=== PATIENT | female | born 1960 | race Caucasian/White ===

== ENCOUNTER 2024-06-10 10:53 | Inpatient (IN) | payer MEDICARE, SELFPAY ==
[2024-06-10] VITALS (19 sets, daily range): BP systolic 87–132; BP diastolic 58–84; PULSE 92–113; RESP 18–24; TEMP 36.2–37.1; O2SAT 85–96
--- NOTE | ~2024-06-10 | XR_ITS ---
EXAMINATION: XR chest 2V DATE: 06/10/2024 11:45 INDICATION: Shortness of breath TECHNIQUE: PA and lateral views of the chest were obtained. COMPARISON: None FINDINGS: Reticular and mild airspace opacities in the right mid to lower and left lower lung zones. Blunting a t the left costophrenic angle but without blunting of the cardiophrenic angle or posterior sulcus con sistent with pleural parenchymal scarring. No pleural effusion or pneumothorax. Heart size is normal. Mild thoracolumbar levocurvature with mild spondylosis. IMPRESSION: 1. Reticular and mild airspace opacities in the right mid to lower and left lower lung zones with olga earance favoring atelectasis or chronic scarring. In the acute setting could not exclude pneumonia. Reviewed, dictated and finalized at location B. ET SURVEY REPRESENTATIVE IMPRESSION: 1. Reticular and mild airspace opacities in the right mid to lower and left low er lung zones with appearance favoring atelectasis or chronic scarring. In the acute setting could not exclude pneumonia.
--- NOTE | ~2024-06-10 | CT_ITS ---
EXAMINATION: CTA chest PE protocol DATE: 06/10/2024 13:01 INDICATION: Shortness of breath. TECHNIQUE: Computed tomography angiography (CTA) of the chest was performed with 100 mL Omnipaque-350 intravenous contrast timed to evaluate the pulmonary arteries. Coronal maximum intensity projection 3D-reconstructions were created by the technologist. Automated exposure control and iterative reconst ruction technique were employed. The dose-length product was 295.93 mGy-cm. COMPARISON: Chest CT 06/10/2024 FINDINGS: There is moderate emphysema. There is mild atelectasis bilaterally. There is scarring in ri ght middle lobe and at right major fissure. No pleural effusion. The heart size is normal. There are coronary artery calcifications. No pericardial effusion. There is no pulmonary embolus. There is christa re cervical spondylosis and moderate thoracic spondylosis. There is mild chronic height loss of multi ple vertebral bodies. IMPRESSION: 1. No pulmonary embolus. 2. Moderate emphysema. 3. Scarring in right middle lobe and at right major fissure. Reviewed, dictated and finalized at location A. EOTYPER APPRENTICE
--- NOTE | 2024-06-10 11:17 | ECG_ITS ---
Test Date: 2024-06-10 11:31:29 Measurements Intervals [place] Rate: 110 P: 54 DC: 117 QRS: -24 QRSD: 93 T: 48 QT: 320 QTc: 435 Interpretive Statements SINUS TACHYCARDIA WITH SHORT DC INTERVAL POSSIBLE LEFT ATRIAL ENLARGEMENT [-0.1mV P-WAVE IN V1/V2] BORDERLINE LEFT AXIS DEVIATION [QRS AXIS < -20] No previous ECG available for comparison Electronically Signed On 06-10-2024 14:51:40 [employer] OPERATOR by Rodo Boo M.D.
[2024-06-10 11:32] LABS: Base Excess ABG 3.5 mEq/l (+/-2.0); Carboxyhemoglobin 4.1 % THb (0-2.0); Fractional Inspired Oxygen 32 %; HCO3 ABG 31.1 mEq/l (22.0-26.0); Methemoglobin ABG 0.2 %THb (0-1.5); Oxygen Content ABG 21.4 %vol (16.0-22.0); Oxygen Saturation ABG 93.1 % (95.0-100.0); Oxyhemoglobin 88.7 % THb (90.0-100.0); PCO2 ABG 57.8 mmHg (35.0-45.0); PO2 ABG 70.5 mmHg (80.0-100.0); Total Hemoglobin 17.2 g/dL (12.0-18.0); pH ABG 7.349 (7.350-7.450)
[2024-06-10 11:34] LABS: Device NASAL CANNULA; Site Drawn LEFT BRACHIAL
[2024-06-10 12:02] LABS: Basophils Percent Auto 0.5 % (0.2-1.2); Eosinophils Percent Auto 0.5 % (0-4.4); Hematocrit 57.1 % (37.0-47.0); Immature Granulocyte Absolute 0.01 K/mm3 (0.00-0.031); Immature Granulocyte Percent A 0.1 % (0-0.5); Lymphocytes Absolute Auto 2.06 K/mm3 (0.9-3.2); Lymphocytes Percent Auto 25.8 % (18.3-44.2); Mean Corpuscular HGB Conc 29.8 g/dl (32-36); Mean Corpuscular Hemoglobin 24.4 pg (26-34); Mean Corpuscular Volume 81.8 fl (80-100); Mean Platelet Volume 9.8 fl (7.4-10.4); Monocytes Absolute Auto 0.5 K/mm3 (0.1-0.6); Monocytes Percent Auto 6.1 % (2.6-8.5); Neutrophils Absolute Auto 5.3 K/mm3 (1.3-6.7); Platelet Count Result 343 k/mm3 (150-375); Red Blood Count 6.98 M/mm3 (4.2-5.4); Red Cell Distribution Width 20.2 % (11.5-14.5)
--- NOTE | 2024-06-10 12:13 | ED.GENADULT ---
HPI - General Adult General Chief complaint: Shortness of Breath/Dyspnea Stated complaint: SOB Time Seen by Provider: 06/10/24 11:57 History of Present Illness HPI narrative: Patient is a 63-year-old female who presents emergency department with chief complaint of hypoxia. Patient reports that she went in for a normal checkup they noticed that her lips were blue and found her oxygen saturation in the 80s the patient was placed on 2 L nasal cannula reports that she feels a little bit better now that she is on the oxygen. Patient denies chest pain denies shortness of breath reports that she does smoke cigarettes Related Data Allergies Allergy/AdvReac Type Severity Reaction Status Date / Time dicloxacillin Allergy Intermediate Unknown Verified 06/10/24 11:59 Exam Narrative: GENERAL: Well-appearing, well-nourished, and in no acute distress. HEAD: Normocephalic, atraumatic. EYES: PERRLA and EOMI. ENT: Nares clear, no rhinorrhea or epistaxis. Mucous membranes moist. NECK: Supple. CHEST: Clear to auscultation. No respiratory distress. HEART: Regular rate and rhythm. No murmur heard. Normal peripheral pulses. ABDOMEN: Soft, nontender, nondistended, normal active bowel sounds. EXTREMITIES: Normal range of motion. No edema. Above-knee amputation left lower extremity SKIN: Warm, dry, no rash. NEURO: No focal deficits. Alert and oriented x3. PSYCH: Normal mood and affect. Course Vital Signs Vital signs: Vital Signs Temperature 36.2 C L 06/10/24 10:51 Pulse Rate 106 H 06/10/24 10:51 Respiratory Rate 23 H 06/10/24 10:51 Blood Pressure 121/78 06/10/24 10:51 Pulse Oximetry 85 L 06/10/24 10:51 Oxygen Delivery Room Air 06/10/24 10:51 Temperature 36.2 C L 06/10/24 10:51 Pulse Rate 109 H 06/10/24 12:16 Respiratory Rate 23 H 06/10/24 12:16 Blood Pressure 108/68 06/10/24 12:16 Pulse Oximetry 92 06/10/24 12:16 Oxygen Delivery Nasal Cannula 06/10/24 11:25 Oxygen Flow Rate 2 06/10/24 11:25 Medical Decision Making [facility] Narrative Medical decision making narrative: Differential diagnosis includes pneumonia, pneumothorax, COVID, COVID flu and RSV were negative Chest x-ray showed no evidence pneumothorax CTA chest showed no evidence of pulmonary embolism Patient is still hypoxic and requiring 2 L nasal cannula oxygen the case was discussed with hospitalist for admission. Vital Signs Vital Signs: Vital Signs Temperature 36.2 C L 06/10/24 10:51 Pulse Rate 106 H 06/10/24 10:51 Respiratory Rate 23 H 06/10/24 10:51 Blood Pressure 121/78 06/10/24 10:51 Pulse Oximetry 85 L 06/10/24 10:51 Oxygen Delivery Room Air 06/10/24 10:51 Temperature 36.2 C L 06/10/24 10:51 Pulse Rate 109 H 06/10/24 12:16 Respiratory Rate 23 H 06/10/24 12:16 Blood Pressure 108/68 06/10/24 12:16 Pulse Oximetry 92 06/10/24 12:16 Oxygen Delivery Nasal Cannula 06/10/24 11:25 Oxygen Flow Rate 2 06/10/24 11:25 Lab Data 06/10/24 11:54 06/10/24 11:54 Labs: Lab Results 06/10/24 06/10/24 06/10/24 Range/Units 11:29 11:54 12:41 WBC 8.0 (4.5-10.0) K/mm3 RBC 6.98 H (4.2-5.4) M/mm3 Hgb 17.0 H (12.0-15.0) g/dL Hct 57.1 H (37.0-47.0) % MCV 81.8 (80-100) fl MCH 24.4 L (26-34) pg MCHC 29.8 L (32-36) g/dl RDW 20.2 H (11.5-14.5) % Plt Count 343 (150-375) k/mm3 MPV 9.8 (7.4-10.4) fl Immature Gran % (Auto) 0.1 (0-0.5) % Neut % (Auto) 67.0 (45.5-73.1) % Lymph % (Auto) 25.8 (18.3-44.2) % [place] % (Auto) 6.1 (2.6-8.5) % Eos % (Auto) 0.5 (0-4.4) % Baso % (Auto) 0.5 (0.2-1.2) % Lymph # (Auto) 2.06 (0.9-3.2) K/mm3 [place] # (Auto) 0.5 (0.1-0.6) K/mm3 Eos # (Auto) 0.0 (0-0.3) K/mm3 Baso # (Auto) 0.0 (0.0-0.1) K/mm3 Abs Immat Gran (auto) 0.01 (0.00-0.031) K/mm3 Absolute Neuts (auto) 5.3 (1.3-6.7) K/mm3 Absolute Nucleated RBC 0.000 (0.0-0.012) K/mm3 Nucleated RBC % 0.0 (0.0-0.2) % PT 13.3 (11.1-14.7) Seconds INR 1.0 APTT 29.4 (22.3-36.8) Seconds Methemoglobin 0.2 (0-1.5) %THb Sodium 139 (137-145) mmol/L Potassium 4.5 (3.4-5.0) mmol/L Chloride 102 (98-107) mmol/L Carbon Dioxide 32 H (22-30) mmol/L Anion Gap 5 (4-12) mmol/L BUN 19 H (7-17) mg/dL Creatinine 0.51 L (0.7-1.0) mg/dL Estim Creat Clear Calc 92 ml/min Estimated GFR > 60 (59 - ) Glucose 121 H (65-110) mg/dL Lactic Acid 0.9 (0.7-2.0) mmol/L Calcium 9.1 (8.4-10.2) mg/dL Magnesium 2.0 (1.6-2.3) mg/dL Total Bilirubin 0.5 (0.2-1.3) mg/dL AST 28 (14-36) U/L ALT 19 (6-35) U/L Alkaline Phosphatase 84 (38-126) U/L Troponin I < 0.012 (0.000-0.034) ng/mL NT-Pro-B Natriuret Pep 37 (19.9-100) pg/mL Total Protein 7.0 (6.3-8.2) g/dL Albumin 4.0 (3.5-5.1) g/dL Procalcitonin 0.1 ng/mL Influenza A (RT-PCR) Negative (Negative) Influenza B (RT-PCR) Negative (Negative) RSV (RT-PCR) Negative (Negative) SARS-CoV-2 RNA (RT-PCR) Negative (Negative) ABG Data ABG results: 06/10/24 11:29 Puncture Site Left brachial ABG pH 7.349 L ABG pCO2 57.8 H ABG pO2 70.5 L ABG PO2/FiO2 Ratio 2.20 ABG HCO3 31.1 H ABG O2 Saturation 93.1 L ABG O2 Content 21.4 ABG Base Excess 3.5 A-a Gradient 90.0 Oxyhemoglobin 88.7 L Carboxyhemoglobin 4.1 H Reduced Hemoglobin 7.0 H Total Hemoglobin 17.2 O2 Delivery Device Nasal cannula O2 Liters/Min 3.0 FiO2 32 Discharge Plan Discharge Clinical Impression: Acute hypoxemic respiratory failure, COPD exacerbation Patient Disposition: Still a Patient Condition: Stable Patient Language: Djib[place]ian Follow-up/Referrals: UNKNOWN,DOCTOR [Primary Care Provider] - Time of Disposition: 13:37
[2024-06-10 12:23] LABS: Alanine Aminotransferase 19 U/L (6-35); Alkaline Phosphatase 84 U/L (38-126); Anion Gap 5 mmol/L (4-12); Aspartate Amino Transferase 28 U/L (14-36); Bilirubin,Total 0.5 mg/dL (0.2-1.3); Blood Urea Nitrogen 19 mg/dL (7-17); Calcium 9.1 mg/dL (8.4-10.2); Carbon Dioxide 32 mmol/L (22-30); Chloride 102 mmol/L (98-107); Estimated CRCL calculation 92 ml/min; Estimated Glomerular Filt Rate > 60; Glucose 121 mg/dL (65-110); Potassium 4.5 mmol/L (3.4-5.0); Sodium 139 mmol/L (137-145)
[2024-06-10 13:01] LABS: Lactic Acid Reflex 0.9 mmol/L (0.7-2.0)
[2024-06-10 13:03] LABS: Prothrombin Time 13.3 Seconds (11.1-14.7)
[2024-06-10 13:04] LABS: Partial Thromboplastin Time 29.4 Seconds (22.3-36.8)
[2024-06-10 13:14] LABS: NT Pro B Type Natriuretic Pept 37 pg/mL (19.9-100); Troponin I < 0.012 ng/mL (0.000-0.034)
[2024-06-10 13:29] LABS: Influenza A QL RT-PCR Negative (Negative); Influenza B QL RT-PCR Negative (Negative); RSV RNA, RT-PCR Negative (Negative); SARS-CoV-2 RNA PCR Negative (Negative)
[2024-06-10 13:35] LABS: Procalcitonin 0.1 ng/mL
[2024-06-10] MEDS: IPRATROPIUM 0.5 MG/ALBUTEROL SULFATE 2.5 MG AMPUL.NEB 3 ML INHALATION ×2 (13:44→20:19)
[2024-06-10] MEDS: methylPREDNISolone SOD SUCC 125 MG VIAL IV PUSH (13:48)
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
--- NOTE | 2024-06-10 17:17 | PC.NURSE ---
This patient, Soha Hoffman, was admitted to 3 [facility] [place] Surg Room 300-01. Patient/family oriented to hospital policies and general routines including ID bracelet, bed and alarms, visiting hours, pain management, procedures, bathroom and other care routines, personal items, smoking policy, room service/diet, and visiting hours. Information on how to activate the Rapid Response Team has been discussed. Patient/Family are encouraged to report perceived risks to care and to ask questions if they do not understand what they are told or what they should do.
[2024-06-10 20:18] LABS: Add Urine Microscopic? YES; Appearance Urine Clear (Clear); Bacteria Urine None Seen /hpf; Bilirubin Urine Negative (Negative); Blood Urine Negative (Negative); Color Urine Yellow (Yellow); Glucose Urine UA 3+ mg/dL (Negative); Ketones Urine Trace mg/dL (Negative); Leukocyte Esterase Ur Negative LEU/UL (Negative); Nitrate Urine Negative (Negative); Non Pathogenic Casts 0-2; Protein Urine 3+ mg/dL (Negative); RBC Urine 0-2 /hpf (0-2); Specific Grav Ur > 1.045 (1.001-1.035); Squamous Epithelial Cell Urine None Seen /hpf (Few); WBC Urine 0-5 /hpf (0-3); pH Urine 5.5 (5.0-9.0)
[2024-06-10] MEDS: methylPREDNISolone SOD SUCC 125 MG VIAL 60 MG IV PUSH (21:57)
[2024-06-11] VITALS (12 sets, daily range): BP systolic 129–139; BP diastolic 57–79; PULSE 86–113; RESP 20–22; TEMP 36.5–36.7; O2SAT 90–96
[2024-06-11] MEDS: HYDROcodone/acetaminophen (*CRX) 5-325 MG TABLET 1 TAB PO ×3 (00:08→23:01)
[2024-06-11] MEDS: IPRATROPIUM 0.5 MG/ALBUTEROL SULFATE 2.5 MG AMPUL.NEB 3 ML INHALATION ×4 (04:46→20:46)
[2024-06-11] MEDS: methylPREDNISolone SOD SUCC 125 MG VIAL 60 MG IV PUSH ×2 (05:36→16:46)
[2024-06-11 07:41] LABS: Eosinophils Percent Auto 0.1 % (0-4.4); Hematocrit 51.1 % (37.0-47.0); Hemoglobin 15.3 g/dL (12.0-15.0); Immature Granulocyte Absolute 0.03 K/mm3 (0.00-0.031); Immature Granulocyte Percent A 0.4 % (0-0.5); Lymphocytes Absolute Auto 0.84 K/mm3 (0.9-3.2); Lymphocytes Percent Auto 10.1 % (18.3-44.2); Mean Corpuscular HGB Conc 29.9 g/dl (32-36); Mean Corpuscular Hemoglobin 24.4 pg (26-34); Mean Corpuscular Volume 81.5 fl (80-100); Mean Platelet Volume 10.4 fl (7.4-10.4); Monocytes Percent Auto 0.5 % (2.6-8.5); Neutrophils Absolute Auto 7.4 K/mm3 (1.3-6.7); Neutrophils Percent Auto 88.9 % (45.5-73.1); Platelet Count Result 284 k/mm3 (150-375); Red Blood Count 6.27 M/mm3 (4.2-5.4); Red Cell Distribution Width 19.5 % (11.5-14.5); White Blood Count 8.3 K/mm3 (4.5-10.0)
[2024-06-11 07:58] LABS: Anion Gap 4 mmol/L (4-12); Blood Urea Nitrogen 16 mg/dL (7-17); Carbon Dioxide 31 mmol/L (22-30); Chloride 101 mmol/L (98-107); Estimated CRCL calculation 116 ml/min; Estimated Glomerular Filt Rate > 60; Glucose 150 mg/dL (65-110); Potassium 4.7 mmol/L (3.4-5.0); Sodium 136 mmol/L (137-145)
[2024-06-11] MEDS: amLODIPine BESYLATE 5 MG TABLET PO (08:19)
[2024-06-11] MEDS: ROSUVASTATIN 10 MG TABLET PO (08:19)
[2024-06-11] MEDS: lisinopriL 20 MG TABLET PO (08:19)
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
[2024-06-12] VITALS (22 sets, daily range): BP systolic 101–140; BP diastolic 45–83; PULSE 83–150; RESP 18–24; TEMP 36.4–36.5; O2SAT 83–96
[2024-06-12] MEDS: IPRATROPIUM 0.5 MG/ALBUTEROL SULFATE 2.5 MG AMPUL.NEB 3 ML INHALATION ×4 (01:31→19:31)
[2024-06-12] MEDS: ROSUVASTATIN 10 MG TABLET PO (08:00)
[2024-06-12] MEDS: lisinopriL 20 MG TABLET PO (08:00)
[2024-06-12] MEDS: amLODIPine BESYLATE 5 MG TABLET PO (08:00)
[2024-06-12] MEDS: methylPREDNISolone SOD SUCC 125 MG VIAL 60 MG IV PUSH (08:00)
[2024-06-12] MEDS: HYDROcodone/acetaminophen (*CRX) 5-325 MG TABLET 1 TAB PO ×2 (08:04→21:16)
--- NOTE | 2024-06-12 12:26 | HOMEO2EVAL ---
Evaluation was performed at [facility] Home Oxygen Evaluation RC: Home Oxygen (O2) Evaluation Start: 06/12/24 11:41 Freq: ONCE Status: Active Protocol: RPE Activity Type Activity Date Activity User E-sign Co-sign Detail Recorded Client Recorded Date Recorded By Document 06/12/24 11:52 [email or web address] [email or web address] 06/12/24 12:26 CLC Document 06/12/24 11:54 [email or web address] 06/12/24 12:26 CLC Document 06/12/24 11:55 [email or web address] [email or web address] 06/12/24 12:26 CLC Document 06/12/24 11:56 [email or web address] [email or web address] 06/12/24 12:26 CLC Document 06/12/24 12:05 [email or web address] [email or web address] 06/12/24 12:26 CLC Document 06/12/24 12:07 [email or web address] [email or web address] 06/12/24 12:26 CLC Document 06/12/24 12:11 [email or web address] [email or web address] 06/12/24 12:26 CLC Document 06/12/24 12:12 [email or web address] [email or web address] 06/12/24 12:26 CLC Document 06/12/24 12:15 [email or web address] [email or web address] 06/12/24 12:26 CLC 06/12/24 06/12/24 06/12/24 11:52 11:54 11:55 Home O2 Evaluation [Oxygen] -Test Phase Resting Resting Resting -Oxygen Delivery Room Air Nasal Cannula Nasal Cannula -Oxygen Flow Rate (L/min) 1 2 [Pulse Oximetry] -Pulse Oximetry (90-100 %) 87 L 88 L 89 L [Pulse Rate] -Pulse Rate (60-100 beats/min) 89 90 85 [Evaluation] -Activity Tolerance [Exercise] -Ambulation Distance (feet) -Ambulation Distance (meters) [Charges] -Evaluation Charges O2 Evaluation by 06/12/24 06/12/24 06/12/24 11:56 12:05 12:07 Home O2 Evaluation [Oxygen] -Test Phase Resting Exercise Exercise -Oxygen Delivery Nasal Cannula Nasal Cannula Nasal Cannula -Oxygen Flow Rate (L/min) 3 3 4 [Pulse Oximetry] -Pulse Oximetry (90-100 %) 92 83 L 87 L [Pulse Rate] -Pulse Rate (60-100 beats/min) 84 125 H 146 H [Evaluation] -Activity Tolerance [Exercise] -Ambulation Distance (feet) -Ambulation Distance (meters) [Charges] -Evaluation Charges 06/12/24 06/12/24 06/12/24 12:11 12:12 12:15 Home O2 Evaluation [Oxygen] -Test Phase Exercise Exercise Exercise -Oxygen Delivery Nasal Cannula Nasal Cannula Nasal Cannula -Oxygen Flow Rate (L/min) 5 6 7 [Pulse Oximetry] -Pulse Oximetry (90-100 %) 86 L 87 L 90 [Pulse Rate] -Pulse Rate (60-100 beats/min) 146 H 150 H 133 H [Evaluation] -Activity Tolerance Good [Exercise] -Ambulation Distance (feet) 100 -Ambulation Distance (meters) 30.47 [Charges] -Evaluation Charges
--- NOTE | 2024-06-12 12:26 | PCRCNOTE ---
Home oxygen evaluation complete. Patient requires 3 lpm with rest and 7 lpm with activity. RN notified of increased heart rate and oxygen requirements. Attempted to call provider to discuss evaluation. Patient believes increased heart rate and oxygen requirement are due to her prosthetic leg not being charged and able to be used appropriately. RN will discuss with provider and notify respiratory if patient will be discharged. Oxygen will be set up upon discharge.
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
[2024-06-13] VITALS (16 sets, daily range): BP systolic 141–151; BP diastolic 72–91; PULSE 76–140; RESP 12–22; TEMP 36.3–36.7; O2SAT 84–94
[2024-06-13] MEDS: IPRATROPIUM 0.5 MG/ALBUTEROL SULFATE 2.5 MG AMPUL.NEB 3 ML INHALATION ×2 (01:48→07:34)
--- NOTE | 2024-06-13 07:30 | ECHO_ITS ---
Patient Info Name: Soha Hoffman Age: 63 years : 1960 Gender: Female Ht: 62 in Wt: 164 lbs BSA: 1.83 m2 HR: 92 bpm BP: 144 / 85 mmHg Heart Rhythm: Sinus Rhythm Technical Quality: Good Exam Date: 06/13/2024 11:08 AM Exam Location: Echo Lab Patient Status: Inpatient Admit Date: 06/10/2024 Staff Ordering Physician: Erwin Bauer MD File Keeper: Bianca Bui RDCS Attending Provider: Swati Zurita APRN Referring Physician: Juancarlos NAQVI; Exam Type: CA echo dop bubble study w con Study Info Indications - hypoxia, assess for PFO Complete two-dimensional, color flow and Doppler transthoracic echocardiogram is performed with contrast to opacify the left ventricle and to improve the deliniation of the left ventricle endocardial borders. Contrast/Agitated Saline Contrast/Ag. Saline: Definity Amount: 2.00 ml Administered By: Bianca Bui RDCS Existing IV Access: Yes IV Access Condition: patent with no signs of infiltration Contrast/Ag. Saline: Agitated Saline Amount: 20.00 ml Existing IV Access: Yes IV Access Condition: patent with no signs of infiltration Summary 1. Left ventricular systolic function is normal, estimated at 50-55%. 2. There is mildly increased left ventricular wall thickness. 3. The left ventricular diastolic function is grade I diastolic dysfunction. 4. Intact interatrial septum visualized by agitated saline imaging. 5. There is trace tricuspid valve regurgitation. 6. No pulmonary hypertension, estimated pulmonary arterial systolic pressure is 30 mmHg. Left Ventricle Left ventricular chamber dimension is normal. Left ventricular systolic function is normal, estimated at 50-55%. There is mildly increased left ventricular wall thickness. Left ventricular septal wall motion is normal. The left ventricular diastolic function is grade I diastolic dysfunction. Right Ventricle Right ventricular chamber dimension is normal. Right ventricular systolic function is normal. Left Atria Left atrial chamber dimension is normal. Right Atria Right atrial chamber dimension is normal. Atrial Septum Intact interatrial septum visualized by agitated saline imaging. Aortic Valve The aortic valve is trileaflet. There is no aortic valve sclerosis. There is no aortic valve stenosis. There is no aortic valve regurgitation. Pulmonic Valve The pulmonic valve is normal. There is no pulmonic valve stenosis. There is no pulmonic regurgitation. Mitral Valve The mitral valve has normal leaflets. There is no mitral valve stenosis. There is no mitral valve regurgitation. Tricuspid Valve The tricuspid valve leaflets are normal. There is no significant tricuspid valve stenosis. There is trace tricuspid valve regurgitation. No pulmonary hypertension, estimated pulmonary arterial systolic pressure is 30 mmHg. Pericardium/Pleural The pericardium appears normal. There is no pericardial effusion. Inferior Vena Cava Normal inferior vena cava with >50% collapse upon inspiration consistent with Empty right atrial pressure, 10 mmHg. Aorta The aortic root size at the sinus of Valsalva is normal. The prox ascending aorta size is normal. Left Ventricular Outflow Tract Name Value Normal LVOT 2D LVOT Diameter 2.0 cm LVOT Doppler LVOT Peak Gradient 4 mmHg LVOT Mean Gradient 2 mmHg LVOT VTI 18 cm LVOT VTI/AV VTI Ratio 0.8 LVOT Stroke Volume 59 ml LVOT CO 4.7 l/min LVOT CI 2.6 l/min/m2 Pulmonic Valve Name Value Normal RVOT Doppler RVOT Peak Gradient 2 mmHg PV Doppler PV Peak Gradient 3 mmHg Mitral Valve Name Value Normal MV Doppler MV Decel [place] 507 cm/s2 MV PHT 50 ms MV Area (PHT) 4.4 cm2 4.0-5.0 MV Diastolic Function MV E Peak Velocity 88 cm/s MV A Peak Velocity 100 cm/s MV E/A 0.9 MV Decel Time 174 ms MV Annular TDI MV E/e' (Septal) 14.7 <=8.0 MV E/e' (Lateral) 10.7 <=8.0 MV E/e' (Average) 12.7 Tricuspid Valve Name Value Normal TV Regurgitation Doppler TR Peak Velocity 223 cm/s TR Peak Gradient 20 mmHg Estimated PAP/RSVP RA Pressure 10 mmHg <=5 PA Systolic Pressure 30 mmHg <36 RV Systolic Pressure 30 mmHg <36 Aorta Name Value Normal Ascending Aorta Ao Root Diameter (MM) 2.9 cm Ao Root Diam Index (MM) 1.6 cm/m2 Aortic Valve Name Value Normal AV Doppler AV Peak Velocity 131 cm/s AV Peak Gradient 7 mmHg AV Mean Gradient 3 mmHg AV VTI 23 cm AV Area (Cont Eq VTI) 2.5 cm2 >=3.0 AV Area (Cont Eq Ferdinand) 2.4 cm2 AV Regurgitation 2D LVOT Area 3.2 cm2 Ventricles Name Value Normal LV Dimensions 2D/MM IVS Diastolic Thickness (2D) 0.8 cm 0.6-1.0 LVID Diastole (2D) 4.5 cm 3.8-5.2 LVIW Diastolic Thickness (2D) 0.8 cm 0.6-0.9 LVID Systole (2D) 2.9 cm 2.2-3.5 LVOT Diameter 2.0 cm LV Mass (2D Cubed) 109.95 g 67.00-162.00 LV Mass Index (2D Cubed) 60 g/m2 43-95 Relative Wall Thickness (2D) 0.35 LV Fractional Shortening/Ejection Fraction 2D/MM LV Fractional Shortening (2D) 37 % 27-45 LV EF (2D Teicholz) 67 % 54-74 LV Diastolic Volume (4C MOD) 62 ml LV EF (4C MOD) 68 % LV Diastolic Volume (2C MOD) 85 ml LV EF (2C MOD) 64 % LV Diastolic Volume (BP MOD) 73 ml 46-106 LV Diastolic Volume Index (BP MOD) 40 ml/m2 29-61 LV Systolic Volume (BP MOD) 25 ml 14-42 LV Systolic Volume Index (BP MOD) 14 ml/m2 8-24 LV EF (BP MOD) 66 % 54-74 LV Diastolic Length (4C) 8.0 cm LV Systolic Length (4C) 6.6 cm LV Stroke Volume (4C MOD) 42 ml Atria Name Value Normal LA Dimensions LA Dimension (MM) 4.0 cm 2.7-3.8 LA Volume (4C A-L) 54 ml LA Volume (BP A-L) 48 ml RA Dimensions RA Area (4C) 18.0 cm2 <=18.0 Report Signatures
[2024-06-13] MEDS: methylPREDNISolone SOD SUCC 40 MG VIAL IV PUSH (08:05)
[2024-06-13] MEDS: ROSUVASTATIN 10 MG TABLET PO (08:05)
[2024-06-13] MEDS: amLODIPine BESYLATE 5 MG TABLET PO (08:05)
[2024-06-13] MEDS: lisinopriL 20 MG TABLET PO (08:05)
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
[2024-06-13 11:16] LABS: Hematocrit 52.2 % (37.0-47.0); Hemoglobin 15.2 g/dL (12.0-15.0); Mean Corpuscular HGB Conc 29.1 g/dl (32-36); Mean Corpuscular Volume 82.3 fl (80-100); Mean Platelet Volume 9.5 fl (7.4-10.4); Platelet Count Result 310 k/mm3 (150-375); Red Blood Count 6.34 M/mm3 (4.2-5.4); Red Cell Distribution Width 19.8 % (11.5-14.5)
[2024-06-13] MEDS: PERFLUTREN LIPID MICROSPHERES 1.5 ML VIAL DILUTED TO 10 ML TOTAL VOLUME IV PUSH (11:30)
[2024-06-13 11:33] LABS: Alanine Aminotransferase 47 U/L (6-35); Alkaline Phosphatase 73 U/L (38-126); Anion Gap 4 mmol/L (4-12); Aspartate Amino Transferase 46 U/L (14-36); Bilirubin,Total 0.6 mg/dL (0.2-1.3); Blood Urea Nitrogen 15 mg/dL (7-17); Calcium 9.2 mg/dL (8.4-10.2); Carbon Dioxide 35 mmol/L (22-30); Chloride 97 mmol/L (98-107); Estimated CRCL calculation 78 ml/min; Estimated Glomerular Filt Rate > 60; Glucose 99 mg/dL (65-110); Potassium 4.6 mmol/L (3.4-5.0); Sodium 136 mmol/L (137-145)
[2024-06-13 11:56] LABS: Thyroid Stimulating Hormone 0.542 uIU/mL (0.465-4.680)
--- NOTE | 2024-06-13 12:04 | IVDEFINITY ---
Prior to administration of IV Definity the patient was educated on the risks and benefits of the imaging enhancing agent including potential adverse side effects. The patient verbalized understanding. Allergies were verified. No exclusion criteria were identified and at least one of the following inclusion criteria were met: 1) physician request, 2) patient technically difficult to image (per the [place] [employer] of Echocardi[employer] guidelines of two or more segments not discernable within the apical view), or 3) questionable left ventricular function. ?
[2024-06-13] MEDS: guaiFENesin 12 HR 600 MG TABCR 1200 MG PO ×2 (12:13→22:02)
[2024-06-13] MEDS: HYDROcodone/acetaminophen (*CRX) 5-325 MG TABLET 1 TAB PO ×2 (12:16→22:02)
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
--- NOTE | 2024-06-13 15:49 | PCRCNOTE ---
Addendum entered by Doris Durant CRTT 06/13/24 16:06: Corrected O2 needs. Pt requires 3 l at rest and 5 l with activity Original Note: Home O2 eval complete, pt needs 3 l rest and 4 l with activity. Will arrange home O2 with IV resp care. Tank in room for transport home. All paperwork and order faxed to DME.
[2024-06-13 16:28] LABS: Alveolar/Arterial O2 Gradient 74.3 mmHg; Base Excess ABG 4.2 mEq/l (+/-2.0); HCO3 ABG 31.3 mEq/l (22.0-26.0); Oxygen Content ABG 21.9 %vol (16.0-22.0); Oxygen Saturation ABG 96.3 % (95.0-100.0); Oxyhemoglobin 94.9 % THb (90.0-100.0); PCO2 ABG 56.1 mmHg (35.0-45.0); PO2 ABG 88.2 mmHg (80.0-100.0); PO2 FiO2 Ratio Arterial Blood 2.76 %; Total Hemoglobin 16.4 g/dL (12.0-18.0); pH ABG 7.365 (7.350-7.450)
[2024-06-13 16:29] LABS: Device NASAL CANNULA; Fractional Inspired Oxygen 28 %; Modified Allen's Test Pass; Site Drawn RIGHT RADIAL
--- NOTE | 2024-06-13 23:04 | PCRCNOTE ---
Patient has an apnea link ordered this evening, however this link cannot be completed due to insufficient supply of test equipment. Nurse and Dr. Bauer's aware. Patient has been started on noninvasive therapy AVAPS settings, per Dr. Bauer order with 36% 02. ABG will be completed in the morning to check oxygen levels. Nurse and doctor aware.
[2024-06-14 02:00] VITALS: RESP 20
[2024-06-14 03:44] LABS: Alveolar/Arterial O2 Gradient 91.1 mmHg; Base Excess ABG 1.8 mEq/l (+/-2.0); Fractional Inspired Oxygen 36 %; Oxygen Saturation ABG 97.2 % (95.0-100.0); Oxyhemoglobin 96.1 % THb (90.0-100.0); PCO2 ABG 54.9 mmHg (35.0-45.0); PO2 ABG 101.9 mmHg (80.0-100.0); PO2 FiO2 Ratio Arterial Blood 2.83 %; Total Hemoglobin 16.2 g/dL (12.0-18.0)
[2024-06-14 03:45] LABS: Device OTHER DEVICE; Modified Allen's Test Pass; Site Drawn LEFT RADIAL
[2024-06-14 05:49] VITALS: BP 141/81; PULSE 80; RESP 20; TEMP 36.4; O2SAT 96
[2024-06-14 06:43] LABS: Hematocrit 50.6 % (37.0-47.0); Mean Corpuscular HGB Conc 29.6 g/dl (32-36); Mean Corpuscular Hemoglobin 24.4 pg (26-34); Mean Corpuscular Volume 82.1 fl (80-100); Platelet Count Result 301 k/mm3 (150-375); Red Blood Count 6.16 M/mm3 (4.2-5.4); Red Cell Distribution Width 19.2 % (11.5-14.5); White Blood Count 10.6 K/mm3 (4.5-10.0)
[2024-06-14 06:53] LABS: Alanine Aminotransferase 92 U/L (6-35); Albumin Level 3.6 g/dL (3.5-5.1); Alkaline Phosphatase 72 U/L (38-126); Anion Gap 2 mmol/L (4-12); Aspartate Amino Transferase 51 U/L (14-36); Bilirubin,Total 0.7 mg/dL (0.2-1.3); Blood Urea Nitrogen 16 mg/dL (7-17); Calcium 8.4 mg/dL (8.4-10.2); Carbon Dioxide 39 mmol/L (22-30); Chloride 96 mmol/L (98-107); Estimated CRCL calculation 98 ml/min; Estimated Glomerular Filt Rate > 60; Glucose 78 mg/dL (65-110); Potassium 4.4 mmol/L (3.4-5.0); Sodium 137 mmol/L (137-145)
[2024-06-14 08:00] VITALS: O2SAT 92
[2024-06-14] MEDS: amLODIPine BESYLATE 5 MG TABLET PO (08:07)
[2024-06-14] MEDS: guaiFENesin 12 HR 600 MG TABCR 1200 MG PO (08:07)
[2024-06-14] MEDS: lisinopriL 20 MG TABLET PO (08:07)
[2024-06-14] MEDS: ROSUVASTATIN 10 MG TABLET PO (08:08)
[2024-06-14] MEDS: HYDROcodone/acetaminophen (*CRX) 5-325 MG TABLET 1 TAB PO (08:21)
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
[2024-06-14] MEDS: UMECLIDINIUM/VILANTEROL 62.5-25 MCG ELLIPTA 1 PUFF INHALATION (10:24)
[2024-06-14 10:25] VITALS: O2SAT 93
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
[2024-06-14] MEDS: ENOXAPARIN 40 MG/0.4 ML SYRINGE SUB-Q (12:33)
--- NOTE | 2024-06-14 14:50 | PCRCNOTE ---
Pt will be set up with NIV at home upon D/C. All O2 needs arecompleted. DME is awaiting approval for NIV unit, should be done today. Dr Bauer is aware. Tank in room for transport home.
== END 2024-06-14 14:25 | disposition home or self-care (01) | DRG 190 ==
LOC: ANHED 13:39 → ANH3MEDSUR 16:37
PROVIDERS: Internal Medicine Pulmonary Disease; Student in an Organized Health Care Education/Training Program; Admitting Provider General Practice; Emergency Provider Emergency Medicine; PCP Physician Assistant; Visit Provider Nurse Practitioner Family
DX: J44.1 Chronic obstructive pulmonary disease with (acute) exacerbation (principal); J96.01 Acute respiratory failure with hypoxia; I10 Essential (primary) hypertension; E78.5 Hyperlipidemia, unspecified; M19.90 Unspecified osteoarthritis, unspecified site; F17.210 Nicotine dependence, cigarettes, uncomplicated; J98.4 Other disorders of lung; J70.5 Respiratory conditions due to smoke inhalation; Z20.822 Contact with and (suspected) exposure to COVID-19; T27 Burn and corrosion of respiratory tract; Z89.612 Acquired absence of left leg above knee; T59.811S Toxic effect of smoke, accidental (unintentional), sequela; Z99.3 Dependence on wheelchair
CPT/HCPCS: 36415; 36600; 71046; 71275; 80048; 80053; 81001; 82375; 82805; 83050; 83605; 83735; 83880; 84145; 84443; 84484; 85018; 85025; 85027; 85610; 85730; 87637; 93005; 94002; 94618; 94640; 96374; 96375; 99285; A9270; C8929; G0378; J1650; J2919; Q9957; Q9967

== ENCOUNTER 2024-08-12 08:22 | Outpatient (CLI) | payer MEDICARE, SELFPAY ==
--- OUTSIDE RECORDS SUMMARY | 2024-08-12 08:46 | XMS_ITS | Encounter Summary ---
Author Organization [facility] Address [address] [place] [address] Care Team Providers Care Senior Account Director Name Role Phone Rae Patel PA-C Primary Care Provider [phone] [phone] Encounter Details Date Type Department Care Team (Latest Contact Info) Description 12/02/2005 Outpatient Historical [facility] DRS BLDG Conversion, History Other Screening Mammogram (Primary Dx) Social History Tobacco Use Types Packs/Day Years Used Date Smoking Tobacco: Never Assessed Comments Unknown Sex and Gender Information Value Date Recorded Sex Assigned at Not on file Legal Sex Female 2:38 AM ELECTRONICS TECH Gender Identity Not on file Sexual Orientation Not on file documented as of this encounter Plan of Treatment Not on file documented as of this encounter Visit Diagnoses Diagnosis Other screening mammogram- Primary documented in this encounter Care Teams Senior Account Director Relationship Specialty Start Date End Date Rae Patel PA-C PCP - General Physician Mixed Crop And Livestock Farmer 06/20/15 documented as of this encounter
--- OUTSIDE RECORDS SUMMARY | 2024-08-12 08:46 | XMS_ITS | Encounter Summary ---
Author Organization [facility] Address [address] [place] [address] Care Team Providers Care Cant Gang Sawyer Name Role Phone Rae Patel PA-C Primary Care Provider [phone] Encounter Details Date Type Department Care Team (Late st Contact Info) Description 09/22/2003 Outpatient Historical [facility] [place] [address] [facility] [address] [place] [address] Erwin Ledesma MD [address] [facility] [address] [place] [address] Social History Tobacco Use Types Packs/Day Years Used Date Smoking Tobacco: Never Assessed Comments Unknown Sex and Gender Information Value Date Recorded Sex Assigned at Not on file Legal Sex Female 2:38 AM MANAGER AGRICULTURAL Gender Identity Not on file Sexual Orientation Not on file documented as of this encounter Plan of Treatment Not on file documented as of this encounter Visit Diagnoses Not on filedocumented in this encounter Care Teams Cant Gang Sawyer Relationship Specialty Start Date End Date Rae Patel PA-C PCP - General Physician Pre Press Proofer 06/20/15 documented as of this encounter
--- OUTSIDE RECORDS SUMMARY | 2024-08-12 08:46 | XMS_ITS | Encounter Summary ---
Author Organization [facility] Address [address] [place] [address] Care Team Providers Care Geography Head Name Role Phone Rae Patel PA-C Primary Care Provider [phone] [phone] Encounter Details Date Type Department Care Team (Latest Contact Info) Description 01/18/2001 Outpatient Historical [facility] Erwin Ledesma MD [address] [place] [id number] Follow-up examination, following other surgery (Primary Dx) Social History Tobacco Use Types Packs/Day Years Used Date Smoking Tobacco: Never Assessed Comments Unknown Sex and Gender Information Value Date Recorded Sex Assigned at Not on file Legal Sex Female 2:38 AM FACILITY SERVICE ASSOCIATE Gender Identity Not on file Sexual Orientation Not on file documented as of this encounter Plan of Treatment Not on file documented as of this encounter Visit Diagnoses Diagnosis Follow-up examination, following other surgery- Primary documented in this encounter Care Teams Geography Head Relationship Specialty Start Date End Date Rae Patel PA-C PCP - General Physician Marine Service Operator 06/20/15 documented as of this encounter
--- OUTSIDE RECORDS SUMMARY | 2024-08-12 08:46 | XMS_ITS | Encounter Summary ---
Author Organization [facility] Address [address] [place] [address] Care Team Providers Care Art Model Name Role Phone Rae Patel PA-C Primary Care Provider [phone] Encounter Details Date Type Department Care Team (Latest Contact Info) Description 02/16/2007 Outpatient Historical [facility] DRS BLDG Conversion, History Other Screening Mammogram (Primary Dx) Social History Tobacco Use Types Packs/Day Years Used Date Smoking Tobacco: Never Assessed Comments Unknown Sex and Gender Information Value Date Recorded Sex Assigned at Not on file Legal Sex Female 2:38 AM SHAREPOINT APPLICATION ARCHITECT Gender Identity Not on file Sexual Orientation Not on file documented as of this encounter Plan of Treatment Not on file documented as of this encounter Visit Diagnoses Diagnosis Other screening mammogram- Primary documented in this encounter Care Teams Art Model Relationship Specialty Start Date End Date Rae Patel PA-C PCP - General Physician Superintendent Meter Tests 06/20/15 documented as of this encounter
--- OUTSIDE RECORDS SUMMARY | 2024-08-12 08:46 | XMS_ITS | Encounter Summary ---
Author Organization [facility] Address [address] [place] [address] Care Team Providers Care Picker And Sorter Load And Unload Name Role Phone Rae Patel PA-C Primary Care Provider [phone] [phone] Encounter Details Date Type Department Care Team (Late st Contact Info) Description 08/10/2024 External Device Data ST[facility] ABSTRACTION Provider, Abstract NO ADDRESS ON FILE Social History Tobacco Use Types Packs/Day Years Used Date Smoking Tobacco: Former Cigarettes 0.5 8 1 06/30/2004 - 04/29/2013 Smokeless Tobacco: Never Alcohol Use Standard Drinks/Week Comments Yes 0 (1 standard drink = 0.6 oz pur e alcohol) occasionally Comments No Sex and Gender Information Value Date Recorded Sex Assigned at Not on file Legal Sex Female 2:38 AM BALLISTICS TESTER Gender Identity Not on file Sexual Orientation Not on file Occupation Industry Job Start Date Job End Date Not on file Not on file Not on file Not on file documented as of this encounter Plan of Treatment Not on file documented as of this encounter Visit Diagnoses Not on filedocumented in this encounter Care Teams Picker And Sorter Load And Unload Relationship Specialty Start Date End Date Rae Patel PA-C PCP - General Physician Travel Occupational Therapist 06/20/15 documented as of this encounter
--- OUTSIDE RECORDS SUMMARY | 2024-08-12 08:46 | XMS_ITS | Encounter Summary ---
Author Organization [facility] Address [address] [place] [address] Care Team Providers Care Psychologist Chief Name Role Phone Rae Patel PA-C Primary Care Provider [phone] Encounter Details Date Type Department Care Team (Late st Contact Info) Description 07/24/2001 Outpatient Historical [facility] [place] [address] [address] Er, Authorized P NO ADDRESS ON FILE FX LOW RADIUS W ULNA-CLOSE (Primary Dx) Social History Tobacco Use Types Packs/Day Years Used Date Smoking Tobacco: Never Assessed Comments Unknown Sex and Gender Information Value Date Recorded Sex Assigned at Not on file Legal Sex Female 2:38 AM RISK MANAGEMENT MANAGER Gender Identity Not on file Sexual Orientation Not on file documented as of this encounter Plan of Treatment Not on file documented as of this encounter Visit Diagnoses Diagnosis Closed fracture of lower end of radius with ulna- Primary documented in this encounter Care Teams Psychologist Chief Relationship Specialty Start Date End Date Rae Patel PA-C PCP - General Physician Bell Cleaner 06/20/15 documented as of this encounter
--- OUTSIDE RECORDS SUMMARY | 2024-08-12 08:46 | XMS_ITS | Encounter Summary ---
Author Organization [facility] Address [address] [place] [address] Care Team Providers Care Clinical Rehabilitation Liaison Name Role Phone Rae Patel PA-C Primary Care Provider [phone] [phone] Encounter Details Date Type Department Care Team (Latest Contact Info) Description 12/17/[address] [facility] DRS BLDG Conversion, History Abnormal Mammogram, Unspecified (Primary Dx) Social History Tobacco Use Types Packs/Day Years Used Date Smoking Tobacco: Never Assessed Comments Unknown Sex and Gender Information Value Date Recorded Sex Assigned at Not on file Legal Sex Female 2:38 AM TEXTILE CONVERSION MANAGER Gender Identity Not on file Sexual Orientation Not on file documented as of this encounter Plan of Treatment Not on file documented as of this encounter Visit Diagnoses Diagnosis Abnormal mammogram, unspecified- Primary documented in this encounter Care Teams Clinical Rehabilitation Liaison Relationship Specialty Start Date End Date Rae Patel PA-C PCP - General Physician Prefabricated Houses Trimmer 06/20/15 documented as of this encounter
--- OUTSIDE RECORDS SUMMARY | 2024-08-12 08:46 | XMS_ITS | Encounter Summary ---
Author Organization [facility] Care Team Providers Care Geophysical Manager Name Role Phone Rae Patel Primary Care Provider [phone]- [phone] Encounter Details Date Type Department Care Team (Latest Contact Info) Description 05/07/2016 Orders Only [facility] ProviderJustyn MD [address] [place] [id number] Social History Tobacco Use Types Packs/Day Years Used Date Smoking Tobacco: Never Assessed Comments Unknown Sex and Gender Information Value Date Recorded Sex Assigned at Not on file Legal Sex Female 8:25 AM CDT Gender Identity Not on file Sexual Orientation Not on file documented as of this encounter Plan of Treatment Not on file documented as of this encounter Procedures Procedure Name Priority Date/Time Associated Diagnosis Comments CARDIOLOGY REPORT 05/07/2016 12: 00 AM ORGAN GRINDER documented in this encounter Results * CARDIOLOGY REPORT (05/07/2016 12:00 AM ORGAN GRINDER) Anatomical Region Laterality Modality Other Narrative 05/07/2016 12:00 AM ORGAN GRINDER Ordered by an unspecified provider. Historical Provider [facility] Final Result documented in this encounter Visit Diagnoses Not on filedocumented in this encounter Care Teams Geophysical Manager Relationship Specialty Start Date End Date Rae Patel PA [address] [place] [address] PCP - General Internal Medicine 10/13/18 documented as of this encounter
--- OUTSIDE RECORDS SUMMARY | 2024-08-12 08:46 | XMS_ITS | Clinical Summary ---
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 04/02/2011 Active OTHER Night time sleep aid every night Active lisinopril (PRINIVIL) 5 mg tablet Take 5 mg by mouth daily. Active oxyCODONE-acetam inophen (PERCOCET) 10-325 mg Tablet Take 1 Tab by mouth every 4 hours as needed for Pain, Severe (For Pain Scale 7-10). 60 Tab 0 05/17/2013 Active rivaroxaban (XARELTO) 10 mg Tablet Take 1 Tab by mouth every 24 hours. 30 Tab 0 05/17/2013 Active Active Problems No known active problems Encounters Date Type Department Care Team Description 08/10/2024 External Device Data STL ABSTRACTION Provider, Abstract 08/03/2024 External Device Data STL ABSTRACTION Provider, Abstract 08/02/2024 External Device Data STL ABSTRACTION Provider, Abstract 08/01/2024 External Device Data STL ABSTRACTION Provider, Abstract 07/30/2024 External Device Data ST[facility] ABSTRACTION Provider, Abstract 07/29/2024 External Device Data STL ABSTRACTION Provider, Abstract 07/27/2024 External Device Data STL ABSTRACTION Provider, Abstract 07/13/2024 External Device Data STL ABSTRACTION Provider, Abstract 06/16/2024 External Device Data STL ABSTRACTION Provider, Abstract 06/07/2024 External Device Data STL ABSTRACTION Provider, Abstract from Last 3 Months Family History Medical History Relation Name Comments Breast Cancer Neg Hx Cancer Neg Hx Ovarian Cancer Neg Hx Social History Tobacco Use Types Packs/Day Years Used Date Smoking Tobacco: Former Cigarettes 0.5 8 1 06/30/2004 - 04/29/2013 Smokeless Tobacco: Never Alcohol Use Standard Drinks/Week Comments Yes 0 (1 standard drink = 0.6 oz pur e alcohol) occasionally Comments No Sex and Gender Information Value Date Recorded Sex Assigned at Not on file Legal Sex Female 2:38 AM CURRICULUM FACILITATOR Gender Identity Not on file Sexual Orientation Not on file Occupation Industry Job Start Date Job End Date Not on file Not on file Not on file Not on file Last Filed Vital Signs Vital Sign Reading Time Taken Comments Blood Pressure 159/88 05/18/2013 4:40 AM CURRICULUM FACILITATOR Pulse 86 05/18/2013 4:40 AM CURRICULUM FACILITATOR Temperature 36.8 C (98.2 F) 05/18/2013 4:40 AM CURRICULUM FACILITATOR Respiratory Rate 16 05/18/2013 4:40 AM CURRICULUM FACILITATOR Oxygen Saturation 96% 05/18/2013 4:40 AM CURRICULUM FACILITATOR Inhaled Oxygen Concentration - - Weight 56.7 kg (125 lb) 05/18/2013 8:54 AM CURRICULUM FACILITATOR Height 157.5 cm (5' 2 ) 05/03/2013 10:04 AM CURRICULUM FACILITATOR Body Mass Index 22.86 05/03/2013 10:04 AM CURRICULUM FACILITATOR Plan of Treatment Health Maintenance Due Date Last Done Comments Pre-Diabetes and Diabetes Screening 1960 PAP SMEAR 09/27/1983 CERVICAL CANCER SCREENING 1992 HPV/Cotest 1992 PAP SMEAR 1992 COLORECTAL SCREENING 09/27/2007 Colorectal Cancer Screening 09/27/2007 FIT-DNA Q 3 years 09/27/2007 FIT/FOBT Q 1 year 09/27/2007 Flex Sig/CT Colonography Q 5 years 09/27/2007 ZOSTER VACCINE (1 of 2) 2012 INFLUENZA VACCINE (#1) 2023 COVID-19 Vaccine (2023- 5 season) 2024 12/17/2020, 12/16/2020, 11/28/2020 BREAST CANCER SCREENING 01/18/2025 01/19/20 24, 08/28/2022, 08/26/2022, Additional history exists DTAP/TDAP/TD VACCINES (2 - T d or Tdap) 02/24/2025 02/24/2015 RSV VACCINE (60+ or ) (1 - 1-dose 75+ series) 2037 Medical Devices Implanted Type Area Security Systems Engineer Device Identifier Shelf Expiration Date Model / Serial / Lot Shell R3 3hl 52mm 3925-0638 - [id number] Implanted:Qty : 1 on 05/16/2013 at [facility] Hip Right: Hip [employer] 03/23/2023 [id number] / / [id number] Liner R3 Xlpe 0d 9525-7734 - [id number] Implanted:Qty : 1 on 05/16/2013 at [facility] Hip Right: Hip [employer] 07/22/2021 [id number] / / [id number] Stem Fem Synrgy Por Sz15 8736-6910 - [id number] Implanted:Qty : 1 on 05/16/2013 at [facility] Hip Right: Hip [employer] 02/21/2023 [id number] / / [id number] Head Fem Oxnm 05/07 Tpr 36mm [id number] - [id number] Implanted:Qty : 1 on 05/16/2013 at [facility] Hip Right: Hip [employer] 01/21/2023 [id number] / / [id number] Screw Sphrcl Hd 6.5x20mm 7229-9596 - [id number] Implanted:Qty : 1 on 05/16/2013 at [facility] Screw Right: Hip [employer] 01/21/2023 [id number] / / [id number] Screw Sphrcl Hd 6.5x35mm 5778-3761 - [id number] Implanted:Qty : 1 on 05/16/2013 at [facility] Screw Right: Hip [employer] 02/21/2023 [id number] / / [id number] Log [id number] - Brasseler K-Wires - 1 - Wire K Cecelia Sgl .035x9 [id number] Implanted:Qty : 2 on 04/10/2011 by Erwin Ledesma MD at [facility] Wire Right: Finger [facility] [id number] / / Description:Site Right Ring finger Load # 56, Apr 09, 2011 Trevon Balls x 2 .035 - Load # 49, Mar 17, 2011 Explanted Type Area Security Systems Engineer Device Identifier Shelf Expiration Date Model / Serial / Lot Stem Fem Synrgy Por Sz14 [id number] - [id number] Implanted:04/25 (Quantity not on file) Explanted:Qty: 1 on 05/16/2013 at [facility] Hip Right: Hip [employer] 02/21/2023 [id number] / / [id number] Description:This was a waste d component and not part of total hip cap pricing,will be charged separately. Procedures Procedure Name Priority Date/Time Associated Diagnosis Comments MAMMO 3D NIKOS SCREEN BILAT W OR WO CAD Routine 01/19/2024 3:24 PM CDT Visit for screening mammogram from Last 3 Months or Most Recently Relevant to Health Maintenance Results * MAMMO 3D NIKOS SCREEN BILAT W OR WO CAD (01/19/2024 3:24 PM CDT) Anatomical Region Laterality Modality Breast Bilateral Mammography 01/19/2024 3:24 PM CDT Impressions 01/19/2024 9:34 PM CDT IMPRESSION: No mammographic evidence of malignancy. OVERALL FINAL ASSESSMENT: BI-RADS Category 1: Negative mammogram. RECOMMENDATION: Bilateral screening mammogram in one year. DICTATION LOCATION: [facility] Narrative 01/19/2024 9:34 PM CDT BILATERAL SCREENING DIGITAL MAMMOGRAM WITH 3D TOMOSYNTHESIS AND CAD DATE: 01/19/2024 3:24 PM COMPARISON: Multiple prior mammograms, dating back to 06/20/2015 and most recently 08/26/2022. HISTORY: Screening mammogram. TECHNIQUE: Low-dose full-field digital breast tomosynthesis examination was performed with 2D and 3D acquisitions. Examination is read in conjunction with computer aided detection. BREAST COMPOSITION: The breasts are heterogeneously dense, which may obscure small masses. FINDINGS: There is no suspicious mass, clustered microcalcification, or architectural distortion in either breast on 2D or 3D images. There has been no change in the mammographic appearance compared with the prior study. Procedure Note Ray Harry MD - 01/19/2024 BILATERAL SCREENING DIGITAL MAMMOGRAM WITH 3D TOMOSYNTHESIS AND CAD DATE: 01/19/2024 3:24 PM COMPARISON: Multiple prior mammograms, dating back to 06/20/2015 and most recently 08/26/2022. HISTORY: Screening mammogram. TECHNIQUE: Low-dose full-field digital breast tomosynthesis examination was performed with 2D and 3D acquisitions. Examination is read in conjunction with computer aided detection. BREAST COMPOSITION: The breasts are heterogeneously dense, which may obscure small masses. FINDINGS: There is no suspicious mass, clustered microcalcification, or architectural distortion in either breast on 2D or 3D images. There has been no change in the mammographic appearance compared with the prior study. IMPRESSION: No mammographic evidence of malignancy. OVERALL FINAL ASSESSMENT: BI-RADS Category 1: Negative mammogram. RECOMMENDATION: Bilateral screening mammogram in one year. DICTATION LOCATION: [facility] Rae Patel PA-C MAMMO ORDERABLES Final Re sult from Last 3 Months or Most Recently Relevant to Health Maintenance Insurance MEDICARE PART A AND B Advance Directives For more information, please contact: [phone] * Full Code (Latest Code Status on File) Date Activated Date Inactivated Comments 05/16/2013 1:28 PM 05/18/2013 6:34 PM * Full Code Date Activated Date Inactivated Comments 05/16/2013 7:10 AM 05/16/2013 1:28 PM * Full Code Date Activated Date Inactivated Comments 04/10/2011 1:07 PM 04/10/2011 10:16 PM * Full Code Date Activated Date Inactivated Comments 04/10/2011 12:36 PM 04/10/2011 1:07 PM Care Teams Programming Manager Relationship Specialty Start Date End Date Rae Patel PA-C PCP - General Physician Patient Service Coordinator 06/20/15
--- OUTSIDE RECORDS SUMMARY | 2024-08-12 08:46 | XMS_ITS | Encounter Summary ---
Author Organization [facility] Address [address] [place] [address] Care Team Providers Care Chicken Vaccinator Name Role Phone Rae Patel PA-C Primary Care Provider +1 [phone] Encounter Details Date Type Department Care Team (Latest Contact Info) Description 10/25/2004 Outpatient Historical HIS [facility] REGINA Ledesma, Erwin Sales MD [address] [place] [address] SCREENING MAMM-MAILG NEOPL-OTHER (Primary Dx) Social History Tobacco Use Types Packs/Day Years Used Date Smoking Tobacco: Never Assessed Comments Unknown Sex and Gender Information Value Date Recorded Sex Assigned at Not on file Legal Sex Female 2:38 AM FABRIC INSPECTOR Gender Identity Not on file Sexual Orientation Not on file documented as of this encounter Plan of Treatment Not on file documented as of this encounter Visit Diagnoses Diagnosis Other screening mammogram- Primary documented in this encounter Care Teams Chicken Vaccinator Relationship Specialty Start Date End Date Rae Patel PA-C PCP - General Physician Commutator V Ring Assembler 06/20/15 documented as of this encounter
--- OUTSIDE RECORDS SUMMARY | 2024-08-12 08:46 | XMS_ITS | Encounter Summary ---
Author Organization [facility] Address [address] [place] [address] Care Team Providers Care Wash Barrel Leader Name Role Phone Rae Patel PA-C Primary Care Provider +1 [phone] Encounter Details Date Type Department Care Team (Latest Contact Info) Description 02/25/2008 Outpatient Historical HIS [facility] DRS BLDG Conversion, History Other Screening Mammogram Social History Tobacco Use Types Packs/Day Years Used Date Smoking Tobacco: Never Assessed Comments Unknown Sex and Gender Information Value Date Recorded Sex Assigned at Not on file Legal Sex Female 2:38 AM MILL STENCILER Gender Identity Not on file Sexual Orientation Not on file documented as of this encounter Plan of Treatment Not on file documented as of this encounter Procedures Procedure Name Priority Date/Time Associated Diagnosis Comments MAMMO SCREEN BILAT W OR WO CAD Routine 02/25/2008 11:35 AM CDT documented in this encounter Results * MAMMO DIGITAL SCREEN BILAT (02/25/2008 11:35 AM CDT) Anatomical Region Laterality Modality Breast Bilateral Other 02/25/2008 11:3 5 AM CDT Narrative 02/25/2008 1:10 PM CDT [address] [address] Admit Date: 02/25/2008 MARIUM HOFFMAN Sex: F Admit Prov: DOCTOR, NOT O Date: 1960 Primary Care Prov: CMRN: [id number] Room: FLORES-A SSN: [id number] IMAGING SERVICES Ordering Prov: DOCTOR, NOT O Accession Number: [id number] Interpretation DIGITAL SCREENING MAMMOGRAM WITH COMPUTER-ASSISTED DIAGNOSIS Findings: The breasts were imaged with digital mammographic technique. There are scattered fibroglandular densities. No significant mass, malignant calcification or architectural distortion is noted. The CAD system does not highlight any suspicious areas. Summary: No mammographic evidence of malignancy. There has been no significant change from prior study of 01/29. Recommendations: Bilateral yearly screening mammogram is recommended. Assessment BIRADS: 1-Negative Recommendation: Normal interval follow-up Dictated by: MACY CALVERT Electronically signed by: MACY CALVERT 02/25/2008 13:09 Transcribed: 02/25/2008 13:09 CXZ Procedure Note Macy Calvert - 02/25/2008 [facility] [address] [place], [place] [address] Admit Date: 02/25/2008 MARIUM HOFFMAN Sex: F Admit Prov: DOCTOR, DONNA Thompson Date: 1960 Primary Care Prov: CMRN: [id number] Room: MDB-A SSN: [id number] [place] [address] IMAGING SERVICES Ordering Prov: DOCTOR, DONNA Thompson Interpretation DIGITAL SCREENING MAMMOGRAM WITH COMPUTER-ASSISTED DIAGNOSIS Findings: The breasts were imaged with digital mammographictechnique. There are scattered fibroglandular densities. No significant mass, malignant calcification or architectural distortion is noted. The CAD system does not highlight any suspicious areas. Summary: No mammographic evidence of malignancy. There has been no significant change from prior study of 01/29. Recommendations: Bilateral yearly screening mammogram is recommended. Assessment BIRADS: 1-Negative Recommendation: Normal interval follow-up Dictated by: MACY CALVERT Electronically signed by: MACY CALVERT 02/25/2008 13:09 Transcribed: 02/25/2008 13:09 CXZ us History Conversion MAMMO ORDERABLES Final Result documented in this encounter Visit Diagnoses Diagnosis Other screening mammogram documented in this encounter Care Teams Wash Barrel Leader Relationship Specialty Start Date End Date Rae Patel PA-C PCP - General Physician Outside Maintenance Worker 06/20/15 documented as of this encounter
--- OUTSIDE RECORDS SUMMARY | 2024-08-12 08:46 | XMS_ITS | Encounter Summary ---
Author Organization [facility] Address [address] [place] [address] Care Team Providers Care Brand Development Manager Name Role Phone Rae Patel PA-C Primary Care Provider +1 -[phone] Encounter Details Date Type Department Care Team (Latest Contact Info) Description 11/15/2000 Outpatient Historical [facility] Erwin Ledesma MD [address] [place] [address] Follow-up examination, following other surgery (Primary Dx) Social History Tobacco Use Types Packs/Day Years Used Date Smoking Tobacco: Never Assessed Comments Unknown Sex and Gender Information Value Date Recorded Sex Assigned at Not on file Legal Sex Female 2:38 AM SLEEVE IRONER Gender Identity Not on file Sexual Orientation Not on file documented as of this encounter Plan of Treatment Not on file documented as of this encounter Visit Diagnoses Diagnosis Follow-up examination, following other surgery- Primary documented in this encounter Care Teams Brand Development Manager Relationship Specialty Start Date End Date Rae Patel PA-C PCP - General Physician Retail Warehouse Supervisor 06/20/15 documented as of this encounter
--- OUTSIDE RECORDS SUMMARY | 2024-08-12 08:46 | XMS_ITS | Encounter Summary ---
Author Organization [facility] Address [address] [place] [address] Care Team Providers Care Drum Reel Cutter Name Role Phone Rae Patel PA-C Primary Care Provider +1 -[phone] Encounter Details Date Type Department Care Team (Late st Contact Info) Description 05/12/2003 Outpatient Historical [facility] [id number] [facility] [address] [place] [address] Erwin Ledesma MD [address] [facility] [address] [place] [address] Social History Tobacco Use Types Packs/Day Years Used Date Smoking Tobacco: Never Assessed Comments Unknown Sex and Gender Information Value Date Recorded Sex Assigned at Not on file Legal Sex Female 2:38 AM LEGAL FILE CLERK Gender Identity Not on file Sexual Orientation Not on file documented as of this encounter Plan of Treatment Not on file documented as of this encounter Visit Diagnoses Not on filedocumented in this encounter Care Teams Drum Reel Cutter Relationship Specialty Start Date End Date Rae Patel PA-C PCP - General Physician Bomb Loader 06/20/15 documented as of this encounter
--- OUTSIDE RECORDS SUMMARY | 2024-08-12 08:46 | XMS_ITS | Encounter Summary ---
Author Organization [facility] Healthcare Address [address] [place] [address] Care Team Providers Care Cleaning Porter Name Role Phone Rae Patel Primary Care Provider +1- [phone] Encounter Details Date Type Department Care Team (Late st Contact Info) Description 06/13/2024 Orders Only [facility] Information Management [address] [place] [address] Scanning, Provider Social History Tobacco Use Types Packs/Day Years Used Date Smoking Tobacco: Some Days Cigarillos Smokeless Tobacco: Never Alcohol Use Standard Drinks/Week Comments Yes 0 (1 standard drink = 0.6 oz pur e alcohol) AUDIT-C Answer Date Recorded Q1: How often do you have a drink containing alcohol? Never 06/10/2024 Q2: How many drinks containi ng alcohol do you have on a typical day when you are drinking? Patient does not drink Q3: How often do you have si x or more drinks on one occasion? Never 06/10/2024 PHQ-2 Answer Date Recorded PHQ-2 Total Score (If total score is 3 or more points, staff should administer the PHQ-9) 0 06/10/2024 Comments Unknown Sex and Gender Information Value Date Recorded Sex Assigned at Not on file Legal Sex Female 8:25 AM CDT Gender Identity Not on file Sexual Orientation Not on file Occupation Industry Job Start Date Job End Date disabled Not on file Not on file Not on file documented as of this encounter Plan of Treatment Not on file documented as of this encounter Procedures Procedure Name Priority Date/Time Associated Diagnosis Comments CARDIOLOGY DOCUMENT SCAN 06/13/2024 documented in this encounter Results * Cardiology Document Scan (06/13/2024) Anatomical Region Laterality Modality Other us Provider Scanning CV CARDIAC SERVICES PROCEDURES Final Result documented in this encounter Visit Diagnoses Not on filedocumented in this encounter Care Teams Cleaning Porter Relationship Specialty Start Date End Date Rae Patel PA [address] [facility] [address] [place] [address] PCP - General Internal Medicine 10/13/18 documented as of this encounter
--- OUTSIDE RECORDS SUMMARY | 2024-08-12 08:46 | XMS_ITS | Clinical Summary ---
Author Organization [facility] Address [facility] [place] [address] Care Team Providers Care Heavy Duty Custodian Name Role Phone Unavailable Primary Care Provider Unavailabl e Social History Tobacco Use Types Packs/Day Years Used Date Smoking Tobacco: Never Assessed Comments Unknown Sex and Gender Information Value Date Recorded Sex Assigned at Not on file Legal Sex Female 6:51 PM CDT Gender Identity Not on file Sexual Orientation Not on file Plan of Treatment Health Maintenance Due Date Last Done Comments Cervical Cancer Screening Pa p Smear (Age 30 to 64) Every 3 Years 1962 Colorectal Cancer Screening Colonoscopy (10 Years) 1962 Annual Physical 1965 Hepatitis C 1980 DTaP, Tdap and Td Vaccines ( 1 - Tdap) 1981 Cervical Cancer Screening Pa p with HPV Testing (Age 30 to 64) Every 5 Years 1992 Cervical Cancer Screening with HPV 1992 Mammogram Screening 2002 Zoster Vaccines (1 of 2) 2012 COVID-19 Vaccine (2023-2 5 season) 2024 Influenza Adult (#1) 2024 RSV Immunization or 60+ Years (1 - 1-dose 75+ series) 2037 Meningococcal B Vaccine Aged Out No l onger eligible based on patient's age to complete this topic Meningococcal Vaccine Aged Out No alexa castro eligible based on patient's age to complete this topic Pneumococcal Vaccine: Pediat rics (0 to 5 Years) and At-Risk Patients (6 to 64 Years) Aged Out No longer eligible b ased on patient's age to complete this topic RSV Immunizations Under 20 Months Aged Out No longer eligible based on patient's age to complete this topic
--- OUTSIDE RECORDS SUMMARY | 2024-08-12 08:46 | XMS_ITS | Encounter Summary ---
Author Organization [facility] Address [address] [place] [address] Care Team Providers Care Recreational Counselor Name Role Phone Rae Patel PA-C Primary Care Provider +1 -[phone] Encounter Details Date Type Department Care Team (Late st Contact Info) Description 07/25/2001 Outpatient Historical [facility] [address] [facility] [address] [place] [id number] Er, Authorized P NO ADDRESS ON FILE OTHR SPEC COMPLIC OF PROCEDURE NEC (Primary Dx) Social History Tobacco Use Types Packs/Day Years Used Date Smoking Tobacco: Never Assessed Comments Unknown Sex and Gender Information Value Date Recorded Sex Assigned at Not on file Legal Sex Female 2:38 AM MONITORING COORDINATOR Gender Identity Not on file Sexual Orientation Not on file documented as of this encounter Plan of Treatment Not on file documented as of this encounter Visit Diagnoses Diagnosis Other specified complications- Primary documented in this encounter Care Teams Recreational Counselor Relationship Specialty Start Date End Date Rae Patel PA-C PCP - General Physician Bed Setter 06/20/15 documented as of this encounter
--- OUTSIDE RECORDS SUMMARY | 2024-08-12 08:47 | XMS_ITS | Encounter Summary ---
Author Organization [facility] Address [address] [place] [address] Care Team Providers Care Production Finisher Name Role Phone Rae Patel PA-C Primary Care Provider +1 -[phone] Encounter Details Date Type Department Care Team (Latest Contact Info) Description 11/05/2000 Outpatient Historical [facility] Erwin Ledesma MD [address] [place] [address] Other acquired deformity of finger (Primary Dx) Social History Tobacco Use Types Packs/Day Years Used Date Smoking Tobacco: Never Assessed Comments Unknown Sex and Gender Information Value Date Recorded Sex Assigned at Not on file Legal Sex Female 2:38 AM ANALYSIS MANAGER Gender Identity Not on file Sexual Orientation Not on file documented as of this encounter Plan of Treatment Not on file documented as of this encounter Visit Diagnoses Diagnosis Other acquired deformity of finger- Primary documented in this encounter Care Teams Production Finisher Relationship Specialty Start Date End Date Rae Patel PA-C PCP - General Physician Physical Science Aide 06/20/15 documented as of this encounter
--- OUTSIDE RECORDS SUMMARY | 2024-08-12 08:47 | XMS_ITS | Encounter Summary ---
Author Organization [facility] Address [address] [place] [address] Care Team Providers Care Direct Sales Consultant Name Role Phone Rae Patel PA-C Primary Care Provider +1 -[phone] Encounter Details Date Type Department Care Team (Latest Contact Info) Description 12/22/2000 Outpatient Historical HIS [facility] REGINA Ledesma, Erwin Sales MD [address] [place] [address] Arthrodesis status (Primary Dx) Social History Tobacco Use Types Packs/Day Years Used Date Smoking Tobacco: Never Assessed Comments Unknown Sex and Gender Information Value Date Recorded Sex Assigned at Not on file Legal Sex Female 2:38 AM GENERAL CARGO CLERK Gender Identity Not on file Sexual Orientation Not on file documented as of this encounter Plan of Treatment Not on file documented as of this encounter Visit Diagnoses Diagnosis Arthrodesis status- Primary documented in this encounter Care Teams Direct Sales Consultant Relationship Specialty Start Date End Date Rae Patel PA-C PCP - General Physician Vp Data 06/20/15 documented as of this encounter
--- OUTSIDE RECORDS SUMMARY | 2024-08-12 08:47 | XMS_ITS | Encounter Summary ---
Author Organization [facility] Address [address] [place] [address] Care Team Providers Care Disability Manager Name Role Phone Rae Patel PA-C Primary Care Provider [phone] Encounter Details Date Type Department Care Team (Latest Contact Info) Description 10/14/2000 Outpatient Historical [facility] Erwin Ledesma MD [address] [place] [phone] Follow-up examination, following other surgery (Primary Dx) Social History Tobacco Use Types Packs/Day Years Used Date Smoking Tobacco: Never Assessed Comments Unknown Sex and Gender Information Value Date Recorded Sex Assigned at Not on file Legal Sex Female 2:38 AM HOGSHEAD WRECKER Gender Identity Not on file Sexual Orientation Not on file documented as of this encounter Plan of Treatment Not on file documented as of this encounter Visit Diagnoses Diagnosis Follow-up examination, following other surgery- Primary documented in this encounter Care Teams Disability Manager Relationship Specialty Start Date End Date Rae Patel PA-C PCP - General Physician Scrap Preparer 06/20/15 documented as of this encounter
--- OUTSIDE RECORDS SUMMARY | 2024-08-12 08:47 | XMS_ITS | Encounter Summary ---
Author Organization [facility] Address 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
--- OUTSIDE RECORDS SUMMARY | 2024-08-12 08:47 | XMS_ITS | Encounter Summary ---
Author Organization [facility] Address 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
--- OUTSIDE RECORDS SUMMARY | 2024-08-12 08:47 | XMS_ITS | Encounter Summary ---
Author Organization [facility] Address [address] [place] [id number] Care Team Providers Care Dental Technician Apprentice Name Role Phone Rae Patel PA-C Primary Care Provider [phone] Encounter Details Date Type Department Care Team (Latest Contact Info) Description 09/22/2000 Outpatient Historical [facility] Ledesma, Erwin Sales MD [address] [place] [phone] Orthopedic aftercare NEC (Primary Dx) Social History Tobacco Use Types Packs/Day Years Used Date Smoking Tobacco: Never Assessed Comments Unknown Sex and Gender Information Value Date Recorded Sex Assigned at Not on file 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
--- OUTSIDE RECORDS SUMMARY | 2024-08-12 08:48 | XMS_ITS | Clinical Summary ---
Author Organization [facility] [address] [facility] Address [address] [place] [address] Care Team Providers Care Unclaimed Property Manager Name Role Phone Rae Patel Primary Care Provider [phone] Allergies Active Allergy Reactions Criticality Noted Date Comments Clindamycin Other (See comments) High 01/07/2011 Medications amLODIPine (NORVASC) 5 mg tablet Take 1 tablet (5 mg total) by mouth daily 100 tablet 06/15/2024 Active rosuvastatin (CRESTOR) 10 mg tablet Take 1 tablet (10 mg total) by mouth daily 100 tablet 06/15/2024 Active lisinopriL (PRINIVIL,ZESTR IL) 20 mg tablet Take 1 tablet (20 mg total) by mouth daily 100 tablet 06/15/2024 Active HYDROcodone-mitul taminophen (NORCO) 5-325 mg per tabletIndicatio ns:Pain Take 1 tablet by mouth every 8 (eight) hours as needed for pain 60 tablet 06/15/2024 Active umeclidinium-vi lanteroL (ANORO ELLIPTA) 62.5-25 mcg/actuation blister with device Inhale 1 puff daily Active albuterol HFA (PROVENTIL HFA,VENTOLIN HFA,PROAIR HFA) 90 mcg/actuation inhaler Inhale 2 puffs every 6 (six) hours as needed for wheezing Active Active Problems Problem Noted Date Diagnosed Date COPD exacerbation 07/10/2024 Assessment & Plan (07/10/2024 11:39 PM RELIEF DRILLER): Patient recently hospitalized for a COPD exacerbation. She is still requiring oxygen at 3 L at rest and 5 with activity. Started on Anoro and albuterol as a rescue. Strongly encouraged her to follow up with Dr. House as instructed and stopped smoking. If she begins to note more use of her albuterol or that she is requiring more oxygen to stay in the low 90s, she needs to follow up immediately. If it is after hours to the ER. Dependence on supplemental oxygen 07/10/2024 Assessment & Plan (07/10/2024 11:41 PM RELIEF DRILLER): Patient recently hospitalized for a COPD exacerbation. She is still requiring oxygen at 3 L at rest and 5 with activity. Started on Anoro and albuterol as a rescue. Strongly encouraged her to follow up with Dr. House as instructed and stopped smoking. If she begins to note more use of her albuterol or that she is requiring more oxygen to stay in the low 90s, she needs to follow up immediately. If it is after hours to the ER. Hypoxia 06/19/2024 Assessment & Plan (07/10/2024 11:40 PM RELIEF DRILLER): Patient recently hospitalized for a COPD exacerbation. She is still requiring oxygen at 3 L at rest and 5 with activity. Started on Anoro and albuterol as a rescue. Strongly encouraged her to follow up with Dr. House as instructed and stopped smoking. If she begins to note more use of her albuterol or that she is requiring more oxygen to stay in the low 90s, she needs to follow up immediately. If it is after hours to the ER. Assessment & Plan (06/19/2024 8:53 PM RELIEF DRILLER): Patient presented today for normal visit and she was extremely hypoxic with O2 sats in the low 80s. Immediately put her on oxygen was able to bring her up but if we try to 2 wean her down dropped back into the 80s. She needs a complete workup including chest x-ray labs to determine the specific cause as it could be pneumonia versus other etiologies. Reviewed this information with the patient and she does not want to go to the hospital. She wants to call her spouse to take her. Advised I still encouraged EMS as she needs oxygen to transport to the hospital and her will not have oxygen in his car. We both talked to him on the phone and after a long discussion she finally did decide to allow EMS transport. She will be taken to [facility]. Will await ER workup and recommendations. Patient left my office via stretcher with EMS with oxygen on board. She appeared stable Tachycardia 06/19/2024 Assessment & Plan (06/19/2024 8:56 PM RELIEF DRILLER): EKG in the office revealed Normal EKG except she is tachycardic. Patient presented today for normal visit and she was extremely hypoxic with O2 sats in the low 80s. Immediately put her on oxygen was able to bring her up but if we try to 2 wean her down dropped back into the 80s. She needs a complete workup including chest x-ray labs to determine the specific cause as it could be pneumonia versus other etiologies. Reviewed this information with the patient and she does not want to go to the hospital. She wants to call her spouse to take her. Advised I still encouraged EMS as she needs oxygen to transport to the hospital and her will not have oxygen in his car. We both talked to him on the phone and after a long discussion she finally did decide to allow EMS transport. She will be taken to [facility]. Will await ER workup and recommendations. Patient left my office via stretcher with EMS with oxygen on board. She appeared stable SOB (shortness of breath) 06/19/2024 BMI 29.0-29.9,adult 06/10/2024 Assessment & Plan (06/23/2024 9:41 AM RELIEF DRILLER): Weight/BMI is in healthy range. Continue healthy lifestyle to maintain. Assessment & Plan (06/10/2024 9:24 AM RELIEF DRILLER): Weight/BMI is in healthy range. Continue healthy lifestyle to maintain. Chronic pain syndrome 12/09/2023 Assessment & Plan (07/10/2024 11:40 PM RELIEF DRILLER): Patient with chronic pain requires occasional hydrocodone. Reviewed it can also suppress breathing so she needs to be very aware. She is using it as instructed Assessment & Plan (12/09/2023 1:24 PM CDT): Patient with chronic pain secondary to her prosthetic/amputation and significant lopez. Uses hydrocodone sparingly. Breast cancer screening by mammogram 07/25/2022 Assessment & Plan (12/09/2023 1:23 PM CDT): Mammogram order provided Assessment & Plan (07/25/2022 2:02 PM RELIEF DRILLER): Mammogram order provided Fatigue 12/23/2020 Assessment & Plan (12/09/2023 1:23 PM CDT): Probably multifactorial. Check labs and followup to re-evaluate Assessment & Plan (07/25/2022 2:01 PM RELIEF DRILLER): Probably multifactorial. Check labs and followup to re-evaluate Assessment & Plan (02/07/2022 11:06 PM CDT): Probably multifactorial. Check labs and followup to re-evaluate Assessment & Plan (06/26/2021 9:01 PM RELIEF DRILLER): Probably multifactorial. Check labs and followup to re-evaluate Assessment & Plan (12/23/2020 10:09 AM CDT): Probably multifactorial. Check labs and followup to re-evaluate Medicare annual wellness visit, subsequent 06/11 Assessment & Plan (12/09/2023 1:23 PM CDT): Encouraged healthy lifestyle, good nutrition and exercise. Encouraged Calcium and Vitamin D and weight bearing exercise for bone health. Reviewed immunizations. Reviewed age appropirate screenings. Medicare Wellness Documentation is completed within the chart Assessment & Plan (07/25/2022 2:01 PM RELIEF DRILLER): Encouraged healthy lifestyle, good nutrition and exercise. Encouraged Calcium and Vitamin D and weight bearing exercise for bone health. Reviewed immunizations. Reviewed age appropirate screenings. Medicare Wellness Documentation is completed within the chart Assessment & Plan (06/26/2021 9:01 PM RELIEF DRILLER): Encouraged healthy lifestyle, good nutrition and exercise. Encouraged Calcium and Vitamin D and weight bearing exercise for bone health. Reviewed immunizations. Reviewed age appropirate screenings. Medicare Wellness Documentation is completed within the chart Assessment & Plan (06/24/2020 10:27 PM RELIEF DRILLER): Encouraged healthy lifestyle, good nutrition and exercise. Encouraged Calcium and Vitamin D and weight bearing exercise for bone health. Reviewed immunizations. Reviewed age appropirate screenings. Medicare Wellness Documentation is completed within the chart Muscle twitching 05/22/2019 Assessment & Plan (05/22/2019 3:15 PM RELIEF DRILLER): This is a significant, separately identifiable problem that was evaluated and managed on the same day as the wellness exam Check labs to determine if electrolyte abnormality. Denies s/s sleep apnea Dermatitis 11/11/2018 Assessment & Plan (05/22/2019 3:12 PM RELIEF DRILLER): Continue steroid cream prn Assessment & Plan (11/11/2018 2:12 PM CDT): Pt is itching to the point of breaking the skin. Stop the Bactroban and start Triamcinolone. Benadryl prn itching. Monitor closely and call with update Left hand pain 11/07/2018 Assessment & Plan (11/07/2018 9:45 PM CDT): Check xrays. Await imaging to determine plan. She has chronic hydrocodone so may use IBU prn Colonoscopy refused 10/24/2018 Assessment & Plan (07/25/2022 1:58 PM RELIEF DRILLER): Refuses colon cancer screening. Reviewed importance of early detection for better outcome. Assessment & Plan (06/26/2021 8:53 PM RELIEF DRILLER): Reviewed importance of screening. Pt voiced understanding. Assessment & Plan (06/24/2020 10:26 PM RELIEF DRILLER): Reviewed importance of screening. Pt voiced understanding. Assessment & Plan (11/16/2019 2:39 PM CDT): Reviewed importance of screening. Pt voiced understanding. Assessment & Plan (05/22/2019 3:13 PM RELIEF DRILLER): Reviewed importance of screening. Pt voiced understanding. Essential hypertension 10/24/2018 Assessment & Plan (07/10/2024 11:38 PM RELIEF DRILLER): Bp is stable/in acceptable range for any co-morbidities. Encouraged to limit sodium intake and exercise for weight control. Continue Norvasc 5 and lisinopril 20 Assessment & Plan (06/19/2024 8:51 PM RELIEF DRILLER): Bp is stable/in acceptable range for any co-morbidities. Encouraged to limit sodium intake and exercise for weight control. Continue lisinopril 20 and amlodipine 5 Assessment & Plan (12/09/2023 1:22 PM CDT): Encouraged to limit sodium intake and exercise for weight control. Patient's blood pressure is out of control today. She has not taken medications in the last 7-10 days because she was having trouble getting it filled. Medications were sent to the pharmacy and she is to call our office if she has trouble picking them up as she needs both medications to keep her blood pressure controlled. Stressed that uncontrolled blood pressure can lead to residual problems not limited to stroke and/or heart attack. Encouraged her to call in a week with blood pressure readings or sooner for any other problems or concerns Assessment & Plan (02/01/2023 9:33 PM CDT): Bp is stable/in acceptable range for any co-morbidities. Encouraged to limit sodium intake and exercise for weight control. Continue lisinopril 20 and amlodipine 5 Assessment & Plan (07/25/2022 1:59 PM RELIEF DRILLER): Bp is stable/in acceptable range for any co-morbidities. Encouraged to limit sodium intake and exercise for weight control. Continue lisinopril and amlodipine Assessment & Plan (02/07/2022 11:06 PM CDT): Bp is stable/in acceptable range for any co-morbidities. Encouraged to limit sodium intake and exercise for weight control. Continue lisinopril and amlodipine Assessment & Plan (06/26/2021 8:59 PM RELIEF DRILLER): Bp is stable/in acceptable range for any co-morbidities. Encouraged to limit sodium intake and exercise for weight control. Continue lisinopril and amlodipine Assessment & Plan (12/23/2020 10:08 AM CDT): Bp is stable/in acceptable range for any co-morbidities. Encouraged to limit sodium intake and exercise for weight control. Continue Amlodipine and lisinopril Assessment & Plan (06/24/2020 10:25 PM RELIEF DRILLER): Bp is stable/in acceptable range for any co-morbidities. Encouraged to limit sodium intake and exercise for weight control. Continue lisinopril Assessment & Plan (11/16/2019 2:38 PM CDT): Bp is stable/in acceptable range for any co-morbidities. Encouraged to limit sodium intake and exercise for weight control. Stable with norvasc and lisinopril Assessment & Plan (05/22/2019 3:11 PM RELIEF DRILLER): Bp is stable/in acceptable range for any co-morbidities. Encouraged to limit sodium intake and exercise for weight control. Continue amlodipine and lisinopril Hx of AKA (above knee amputation), left 10/25/19 19 Assessment & Plan (06/19/2024 8:51 PM RELIEF DRILLER): History of AKA secondary to the lopez. Has a prosthetic and does great with ambulation Assessment & Plan (12/09/2023 1:22 PM CDT): History left [id number] amputation. Doing well with her prosthesis. Continues to use hydrocodone sparingly p.r.n. for breakthrough pain from the prosthesis as well as R Axel Assessment & Plan (02/01/2023 9:34 PM CDT): Patient with history of [id number] amputation. Her prosthetic is no longer fitting comfortable and is affecting her gait to the point where she has to hold onto things to be able to ambulate in almost top around. Needs to return to [facility] to be refittd for Prosthetics so she is able to complete her ADLs independently. Assessment & Plan (07/25/2022 1:59 PM RELIEF DRILLER): History above the knee amputation. Has prosthetic device. It is not fitting as well and is working with [facility] for replacement. Will await recommendations as she would benefit from a new device to avoid breakdown and infection of the stump Assessment & Plan (06/26/2021 8:59 PM RELIEF DRILLER): Uses prosthesis Assessment & Plan (06/24/2020 10:26 PM RELIEF DRILLER): No change Assessment & Plan (11/16/2019 2:40 PM CDT): Needs new prosthesis. She will contact [facility] and let me know what else needs done. Uses prn hydrocodone based on her activity due to the AKA and prosthesis. Will send refill. #60 will usually last up to 6 months. Assessment & Plan (05/22/2019 3:13 PM RELIEF DRILLER): Continue with the prosthesis. History of lopez 10/24/2018 Assessment & Plan (06/19/2024 8:51 PM RELIEF DRILLER): History of extensive lopez with scarring. On hydrocodone p.r.n. for pain related to these lopez skin changes Assessment & Plan (06/26/2021 9:00 PM RELIEF DRILLER): No change Assessment & Plan (06/24/2020 10:26 PM RELIEF DRILLER): No change Assessment & Plan (05/22/2019 3:17 PM RELIEF DRILLER): Chronic pain -- Continue to use the least effective amount of the narcotic. Reviewed the addictive and dependency characteristics of narcotics. Refill hydrocodone. Mixed hyperlipidemia 10/24/2018 Assessment & Plan (07/10/2024 11:38 PM RELIEF DRILLER): Encouraged patient to follow low fat/low chol diet like the Mediterranean diet. Increase good fats in the diet. Increase exercise. Monitor labs as needed. Continue Crestor 10 Assessment & Plan (06/19/2024 8:50 PM RELIEF DRILLER): Encouraged patient to follow low fat/low chol diet like the Mediterranean diet. Increase good fats in the diet. Increase exercise. Monitor labs as needed. Continue Crestor 10 Assessment & Plan (12/09/2023 1:23 PM CDT): Encouraged patient to follow low fat/low chol diet like the Mediterranean diet. Increase good fats in the diet. Increase exercise. Monitor labs as needed. Continue Crestor 10 Assessment & Plan (02/01/2023 9:33 PM CDT): Encouraged patient to follow low fat/low chol diet like the Mediterranean diet. Increase good fats in the diet. Increase exercise. Monitor labs as needed. Continue Crestor 10 Assessment & Plan (07/25/2022 1:59 PM RELIEF DRILLER): Encouraged patient to follow low fat/low chol diet like the Mediterranean diet. Increase good fats in the diet. Increase exercise. Monitor labs as needed. Continue Crestor Assessment & Plan (02/07/2022 11:06 PM CDT): Encouraged patient to follow low fat/low chol diet like the Mediterranean diet. Increase good fats in the diet. Increase exercise. Monitor labs as needed. Continue Crestor 10 Assessment & Plan (06/26/2021 9:00 PM RELIEF DRILLER): Encouraged patient to follow fat/low chol diet like the Mediterranean diet. Increase good fats in the diet. Increase exercise. Monitor labs as needed. Continue statin Assessment & Plan (12/23/2020 10:08 AM CDT): Encouraged patient to follow fat/low chol diet like the Mediterranean diet. Increase good fats in the diet. Increase exercise. Monitor labs as needed. Continue crestor Assessment & Plan (06/24/2020 10:25 PM RELIEF DRILLER): Encouraged patient to follow fat/low chol diet like the Mediterranean diet. Increase good fats in the diet. Increase exercise. Monitor labs as needed. Diet control Assessment & Plan (11/16/2019 2:41 PM CDT): Encouraged patient to continue low fat/low chol diet. Continue exercise. Increase good fats in the diet. Monitor labs as needed. Assessment & Plan (05/22/2019 3:12 PM RELIEF DRILLER): Encouraged patient to continue low fat/low chol diet. Continue exercise. Increase good fats in the diet. Monitor labs as needed. Pre-diabetes 10/24/2018 Assessment & Plan (12/09/2023 1:23 PM CDT): Pre-diabetes/hyperglycemia is a precursor to Dm. Stressed importance of working on diet (decrease your simple sugars and one carbohydrate with each meal) and increase you exercise to achieve weight loss and this will help prevent you from progressing to diabetes. Assessment & Plan (02/01/2023 9:35 PM CDT): Pre-diabetes/hyperglycemia is a precursor to Dm. Stressed importance of working on diet (decrease your simple sugars and one carbohydrate with each meal) and increase you exercise to achieve weight loss and this will help prevent you from progressing to diabetes. Assessment & Plan (07/25/2022 2:00 PM RELIEF DRILLER): Pre-diabetes/hyperglycemia is a precursor to Dm. Stressed importance of working on diet (decrease your simple sugars and one carbohydrate with each meal) and increase you exercise to achieve weight loss and this will help prevent you from progressing to diabetes. Assessment & Plan (02/07/2022 11:06 PM CDT): Pre-diabetes/hyperglycemia is a precursor to Dm. Stressed importance of working on diet (decrease your simple sugars and one carbohydrate with each meal) and increase you exercise to achieve weight loss and this will help prevent you from progressing to diabetes. Assessment & Plan (06/26/2021 9:00 PM RELIEF DRILLER): Pre-diabetes/hyperglycemia is a precursor to Dm. Stressed importance of working on diet (decrease your simple sugars and one carbohydrate with each meal) and increase you exercise to achieve weight loss and this will help prevent you from progressing to diabetes. Assessment & Plan (12/23/2020 10:09 AM CDT): Pre-diabetes/hyperglycemia is a precursor to Dm. Stressed importance of working on diet (decrease your simple sugars and one carbohydrate with each meal) and increase you exercise to achieve weight loss and this will help prevent you from progressing to diabetes. Assessment & Plan (06/24/2020 10:25 PM RELIEF DRILLER): Pre-diabetes is a precursor to Dm. Stressed importance of working on diet (decrease your simple sugars and one carbohydrate with each meal) and increase you exercise to achieve weight loss and this will help prevent you from progressing to diabetes. Assessment & Plan (11/16/2019 2:41 PM CDT): Pre-diabetes is a precursor to Dm. Stressed importance of working on diet (decrease your simple sugars and one carbohydrate with each meal) and increase you exercise to achieve weight loss and this will help prevent you from progressing to diabetes. Assessment & Plan (05/22/2019 3:15 PM RELIEF DRILLER): This is a significant, separately identifiable problem that was evaluated and managed on the same day as the wellness exam Pre-diabetes is a precursor to Dm. Stressed importance of working on diet (decrease your simple sugars and one carbohydrate with each meal) and increase you exercise to achieve weight loss and this will help prevent you from progressing to diabetes. Tobacco abuse 10/24/2018 Assessment & Plan (07/10/2024 11:38 PM RELIEF DRILLER): Encouraged smoking cessation. Discussed 3 minutes. Reviewed options for assistance with cessation. Reviewed intermodal customer service sequela associated with smoking. Pt declines assistance at this time but may contact the office at anytime for further help as they desire. Assessment & Plan (06/19/2024 8:50 PM RELIEF DRILLER): Encouraged smoking cessation. Discussed 3 minutes. Reviewed options for assistance with cessation. Reviewed intermodal customer service sequela associated with smoking. Pt declines assistance at this time but may contact the office at anytime for further help as they desire. Assessment & Plan (02/01/2023 9:33 PM CDT): Encouraged smoking cessation. Discussed 3 minutes. Reviewed options for assistance with cessation. Reviewed intermodal customer service sequela associated with smoking. Pt declines assistance at this time but may contact the office at anytime for further help as they desire. Assessment & Plan (07/25/2022 2:01 PM RELIEF DRILLER): Encouraged smoking cessation. Discussed 3 minutes. Reviewed options for assistance with cessation. Reviewed intermodal customer service sequela associated with smoking. Pt declines assistance at this time but may contact the office at anytime for further help as they desire. Discussed low-dose CT. Will consider Assessment & Plan (02/07/2022 11:07 PM CDT): Encouraged smoking cessation. Discussed 3 minutes. Reviewed options for assistance with cessation. Reviewed correction sequela associated with smoking. Pt declines assistance at this time but may contact the office at anytime for further help as they desire. Assessment & Plan (06/26/2021 9:00 PM RELIEF DRILLER): Encouraged smoking cessation. Discussed 3 minutes. Reviewed options for assistance with cessation. Reviewed correction sequela associated with smoking. Pt declines assistance at this time but may contact the office at anytime for further help as they desire. Assessment & Plan (06/24/2020 10:26 PM RELIEF DRILLER): Encouraged smoking cessation. Discussed 3 minutes. Reviewed options for assistance with cessation. Reviewed correction sequela associated with smoking. Pt declines assistance at this time but may contact the office at anytime for further help as they desire. Assessment & Plan (11/16/2019 2:39 PM CDT): Encouraged smoking cessation. Discussed 3 minutes. Reviewed options for assistance with cessation. Reviewed correction sequela associated with smoking. Pt declines assistance at this time but may contact the office at anytime for further help as they desire. Assessment & Plan (05/22/2019 3:12 PM RELIEF DRILLER): Encouraged smoking cessation. Discussed 3 minutes. Reviewed options for assistance with cessation. Reviewed intermodal customer service sequela associated with smoking. Pt declines assistance at this time but may contact the office at anytime for further help as they desire. Marijuana abuse, continuous 11/07/2015 Overview (07/21/2022): ongoing Other abnormal glucose 11/07/2015 Overview (07/21/2022): stable Resolved Problems Problem Noted Date Diagnosed Date Resolved Date Skin tag 06/18/2023 12/09/2023 Assessment & Plan (06/18/2023 9:47 PM RELIEF DRILLER): Pathology confirmed benign skin tags. No further treatment is needed. Skin lesions 06/10/2023 12/09/2023 Assessment & Plan (06/10/2023 3:55 PM RELIEF DRILLER): Reviewed procedure with patient including process, possible scarring, risk for bleeding and or infection and that the procedure will remove the lesion but if pathology reveals a cancer, a larger more aggressive excision may be needed for definitive treatment. All questions were answered and pt desires to procede. Area around each skin tag was cleansed with Betadine x 3. Lower lesion was smaller and the #2 lesion was larger. . Area infiltrated with Xylocane with Epi. Each skin tag was clamped at the base then snipped with iris scissors. Silver nitrate used for scant hemostasis. Pt tolerated well. Bandaid applied to each one. Reviewed s/s infection and call immediately for any problems. Await pathology. Obesity (BMI 30-39.9) 02/01/20232023 Assessment & Plan (12/09/2023 1:23 PM CDT): Discussed the patient's BMI. The BMI is above average. BMI management plan is completed. BMI Follow-up includes: nutrition counseling, exercise counseling and education provided. Assessment & Plan (06/10/2023 3:54 PM RELIEF DRILLER): Discussed the patient's BMI. The BMI is above average. BMI management plan is completed. BMI Follow-up includes: nutrition counseling, exercise counseling and education provided. Assessment & Plan (02/01/2023 9:34 PM CDT): Discussed the patient's BMI. The BMI is above average. BMI management plan is completed. BMI Follow-up includes: nutrition counseling, exercise counseling and education provided. Obesity (BMI 30.0-34.9) 02/01/202305/25 Assessment & Plan (12/09/2023 1:24 PM CDT): Discussed the patient's BMI. The BMI is above average. BMI management plan is completed. BMI Follow-up includes: nutrition counseling, exercise counseling and education provided. Assessment & Plan (06/10/2023 3:55 PM RELIEF DRILLER): Discussed the patient's BMI. The BMI is above average. BMI management plan is completed. BMI Follow-up includes: nutrition counseling, exercise counseling and education provided. Assessment & Plan (02/01/2023 9:34 PM CDT): Discussed the patient's BMI. The BMI is above average. BMI management plan is completed. BMI Follow-up includes: nutrition counseling, exercise counseling and education provided. Mammogram declined 06/26/2021 Assessment & Plan (06/26/2021 9:01 PM RELIEF DRILLER): Reviewed importance of screening. Pt voiced understanding. BMI 29.0-29.9,adult 06/24/2021 01/21/20 23 Assessment & Plan (07/25/2022 2:01 PM RELIEF DRILLER): Weight/BMI is in healthy range. Continue healthy lifestyle to maintain. Assessment & Plan (02/07/2022 11:06 PM CDT): Weight/BMI is in healthy range. Continue healthy lifestyle to maintain. Assessment & Plan (06/24/2021 1:34 PM RELIEF DRILLER): Weight/BMI is in healthy range. Continue healthy lifestyle to maintain. BMI 29.0-29.9,adult 12/17/2020 12/18/19 21 Assessment & Plan (12/17/2020 1:33 PM CDT): Weight/BMI is in healthy range. Continue healthy lifestyle to maintain. BMI 29.0-29.9,adult 11/16/2019 12/18/19 21 Assessment & Plan (06/18/2020 1:37 PM RELIEF DRILLER): Weight/BMI is in healthy range. Continue healthy lifestyle to maintain. Assessment & Plan (11/16/2019 1:58 PM CDT): BMI Follow-up includes: Discussed diet and exercising counseling. Breast cancer screening by mammogram 05/22/2019 12/16/2021 Assessment & Plan (06/24/2020 10:27 PM RELIEF DRILLER): Mammogram order provided Assessment & Plan (11/16/2019 2:39 PM CDT): Mammogram order provided Assessment & Plan (05/22/2019 3:15 PM RELIEF DRILLER): Mammogram order provided BMI 28.0-28.9,adult 05/16/2019 11/16/19 20 Assessment & Plan (05/16/2019 2:07 PM RELIEF DRILLER): Weight/BMI is in healthy range. Continue healthy lifestyle to maintain. Medicare annual wellness visit, subsequent 05/16/2019 11/16/2019 Assessment & Plan (05/22/2019 3:13 PM RELIEF DRILLER): Encouraged healthy lifestyle, good nutrition and exercise. Encouraged Calcium and Vitamin D and weight bearing exercise for bone health. Reviewed immunizations Reviewed age appropirate screenings. Documentation is on the chart BMI 26.0-26.9,adult 11/11/2018 05/16/20 19 Assessment & Plan (11/11/2018 1:50 PM CDT): Weight/BMI is in healthy range. Continue healthy lifestyle to maintain. Fall 11/07/2018 06/26/2021 Assessment & Plan (11/07/2018 9:46 PM CDT): Discuss ways to decrease falls. She will plug in the prosthesis is a different plug to avoid having this happen again. Abrasion 11/07/2018 11/16/2019 Assessment & Plan (11/07/2018 9:47 PM CDT): Keep area clean. Look for s/s infection and call if they appear. Use KATARINA prn Marijuana use 10/24/2018 12/09/2023 Assessment & Plan (06/24/2020 10:26 PM RELIEF DRILLER): noted Acquired absence of left leg above knee 11/07/2015 07/25/2022 Overview (07/21/2022): stable Essential hypertension 11/07/201507/25 Overview (07/21/2022): controlled Hyperlipidemia 11/07/2015 07/25/2022 Overview (07/21/2022): rx declined Tobacco abuse 11/07/2015 07/25/2022 Overview (07/21/2022): ongoing Encounters Date Type Department Care Team Description 07/11/[address] [place] [phone] Rae Patel PA Additional Services Or Orders 06/23/2024 9:30 AM RELIEF DRILLER Office Visit [address] [place] [phone] Rae Patel PA COPD exacerbation (HCC) (Primary Dx); Dependence on supplemental oxygen; Hypoxia; Chronic pain syndrome; Essential hypertension; Mixed hyperlipidemia; Tobacco abuse; BMI 29.0-29.9,adult 06/15/[address] [place] [phone] Rae Patel PA 06/13/2024 Orders Only [facility] Health Information Management [address] [place] [id number] Scanning, Provider 06/10/2024 9:00 AM RELIEF DRILLER Office Visit [facility] [address] [place] [address] [address] [place] [phone] Rae Patel PA Hypoxia (Primary Dx); SOB (shortness of breath); Tachycardia; Essential hypertension; Hx of AKA (above knee amputation), left (HCC); History of lopez; Mixed hyperlipidemia; Tobacco abuse; BMI 29.0-29.9,adult from Last 3 Months Immunizations Immunization Administration Dates Next Due Influenza, Unspecified 05/25/2023(Deferr ed: Patient Refused),05/25/2023(Deferred: Patient Refused),07/21/2022(Deferred: Patient Refused),06/24/2021(Deferred: Patient Refused),02/23/2020(Deferred: Patient Refused),02/22/2018(Deferred: Patient Refused) Pfizer SARS-CoV-2 Monovalent Vaccination (12+ Yrs) PURPLE 12/17/2020,12/16/2020,11/28/2020 Pfizer Sars-Cov-2 Bivalent Vaccination (6 MOS-4 YRS) 07/21/2022(Deferred: Patient Refused) Tdap 02/24/2015 Surgical History Surgery Date Site/Laterality Comments ABOVE KNEE LEG AMPUTATION Left AMPUTATION FINGER / THUMB Left Finger tips Medical History Medical History Date Comments Hyperlipidemia Hypertension Family History Medical History Relation Name Comments No Known Problems Father Emphysema Mother Hypertension Mother Relation Name Status Comments Father Mother Social History Tobacco Use Types Packs/Day Years Used Date Smoking Tobacco: Some Days Cigarillos Smokeless Tobacco: Never Tobacco Cessation:Ready to Q uit: Not Asked; Counseling Given: Not Answered Alcohol Use Standard Drinks/Week Comments Yes 0 (1 standard drink = 0.6 oz pur e alcohol) AUDIT-C Answer Date Recorded Q1: How often do you have a drink containing alcohol? Never 06/23/2024 Q2: How many drinks containi ng alcohol do you have on a typical day when you are drinking? Patient does not drink Q3: How often do you have si x or more drinks on one occasion? Never 06/23/2024 PHQ-2 Answer Date Recorded PHQ-2 Total Score (If total score is 3 or more points, staff should administer the PHQ-9) 0 06/23/2024 Comments Unknown Sex and Gender Information Value Date Recorded Sex Assigned at Not on file Legal Sex Female 8:25 AM CDT Gender Identity Not on file Sexual Orientation Not on file Occupation Industry Job Start Date Job End Date disabled Not on file Not on file Not on file Obstetrics History Last Filed Vital Signs Vital Sign Reading Time Taken Comments Blood Pressure 122/80 06/23/2024 9:39 AM RELIEF DRILLER Pulse 113 06/23/2024 9:39 AM RELIEF DRILLER Temperature 36.7 C (98.1 F) 06/10/2024 9:13 AM RELIEF DRILLER Respiratory Rate 16 01/20/2023 1:30 PM CDT Oxygen Saturation 95% 06/23/2024 9:39 AM RELIEF DRILLER O2 @3L/NC Inhaled Oxygen Concentration - - Weight 72.8 kg (160 lb 8 oz) 06/23/2024 9:39 AM RELIEF DRILLER Height 156.8 cm (5' 1.75 ) 12/09/2023 9:05 AM CD T Body Mass Index 29.59 12/09/2023 9:05 AM CDT Plan of Treatment Health Maintenance Due Date Last Done Comments Cervical Cancer Screening 1962 Colon Cancer Screening-Colonoscopy 1962 Hepatitis C Screening 1962 Hepatitis B Screening 1980 Pneumococcal vaccine <65 (1 of 2 - PCV) 1981 Zoster Vaccine (1 of 2) 2012 Covid-19 Vaccine ( season) 2024 12/17/2020, 12/16/2020, 11/28/2020 Influenza Vaccine (#1) 2024 Postp oned from 01/24/2024 (Patient declined, but will receive in the future) Regular Well Visit/Exam 18-64 12/08/2024 12/09/2023, 07/21/2022, 06/24/2021, Additional history exists Breast Cancer Screening-Mammogram 01/18/2025 01/19/2024, 01/19/2024, 01/19/2024, Additional history exists DTaP/Tdap/Td Vaccine (2 - Td or Tdap) 02/24/2025 02/24/2015 Depression Screening 06/23/2025 06/23/2024, 06/10/2024, 12/09/2023, Additional history exists Procedures Procedure Name Priority Date/Time Associated Diagnosis Comments CARDIOLOGY DOCUMENT SCAN 06/13/2024 ECG 12-LEAD Routine 06/10/2024 SOB (shortness of breath) Tachycardia SCREENING MAMMOGRAM BILATERAL W PHILIP Schedule Routine, Read Routine (OP Routine) 01/19/2024 10:54 AM CDT Breast cancer screening by mammogram from Last 3 Months or Most Recently Relevant to Health Maintenance Results * Cardiology Document Scan (06/13/2024) Anatomical Region Laterality Modality Other us Provider Scanning CV CARDIAC SERVICES PROCEDURES Final Result * ECG 12 lead (06/10/2024) 06/10/2024 Narrative Rae Patel PA - 06/10/2024 10:26 AM RELIEF DRILLER Dx: hypoxia/tachycardia 106 bpm Normal Sinus rhythm. NO comparison available. Rae MUSA ECG ORDERABLES Edited Res ult - Final * Screening Mammogram Bilateral W Philip (01/19/2024 10:54 AM CDT) Anatomical Region Laterality Modality Breast Bilateral Mammography us Rae MUSA IMG MAMMO PROCEDURES Final Result from Last 3 Months or Most Recently Relevant to Health Maintenance Insurance MEDICARE MEDICARE Advance Directives For more information, please contact: [phone] Documents on File Type Date Recorded Patient Real Estate Agent/Broker Expl anation ADVANCE DIRECTIVE 05/16/2019 Care Teams Unclaimed Property Manager Relationship Specialty Start Date End Date Rae Patel PA [address] [id number] PCP - General Internal Medicine 10/13/18
--- OUTSIDE RECORDS SUMMARY | 2024-08-12 08:48 | XMS_ITS | Referral Summary ---
Author Organization [address] Address [address] [place] [id number] Care Team Providers Care B Operator Name Role Phone Rae Patel Primary Care Provider [phone]- [phone] Encounters Date Type Department Care Team Description 07/11/[address] [place] [phone] Rae Patel PA Additional Services Or Orders 06/23/2024 9:[address] TE[address] Office Visit [address] [place] [phone] Rae Patel PA COPD exacerbation (HCC) (Primary Dx); Dependence on supplemental oxygen; Hypoxia; Chronic pain syndrome; Essential hypertension; Mixed hyperlipidemia; Tobacco abuse; BMI 29.0-29.9,adult 06/15/[address] [place] [phone] Rae Patel PA 06/13/2024 Orders Only [facility] Health Information Management [address] [place] [id number] Scanning, Provider 06/10/2024 9:[address] TESTER Office Visit [address] [place] [phone] Rae Patel PA Hypoxia (Primary Dx); SOB (shortness of breath); Tachycardia; Essential hypertension; Hx of AKA (above knee amputation), left (HCC); History of lopez; Mixed hyperlipidemia; Tobacco abuse; BMI 29.0-29.9,adult from Last 3 Months Allergies Active Allergy Reactions Criticality Noted Date [...] 07/10/2024 Assessment & Plan (07/10/2024 11:[address] TESTER): Patient recently hospitalized for a COPD exacerbation. [...] 07/10/2024 Assessment & Plan (07/10/2024 11:41 [address] TESTER): Patient recently hospitalized for a COPD exacerbation. [...] 06/19/2024 Assessment & Plan (07/10/2024 11:40 [address] TESTER): Patient recently hospitalized for a COPD exacerbation. [...] ER. Assessment & Plan (06/19/2024 8:53 PM [address]IVE TESTER): Patient presented today for normal visit and [...] EMS transport. She will be taken to [facility]. Will await ER workup and recommendations. Patient left my office via stretcher with EMS with oxygen on board. She appeared stable Tachycardia 06/19/2024 Assessment & Plan (06/19/2024 8:56 PM [address]IVE TESTER): EKG in the office revealed Normal EKG [...] EMS transport. She will be taken to [facility]. Will await ER workup and recommendations. Patient left my office via stretcher with EMS with oxygen on board. She appeared stable SOB (shortness of breath) 06/19/2024 BMI 29.0-29.9,adult 06/10/2024 Assessment & Plan (06/23/2024 9:[address] TESTER): Weight/BMI is in healthy range. Continue healthy lifestyle to maintain. Assessment & Plan (06/10/2024 9:[address] TESTER): Weight/BMI is in healthy range. Continue healthy lifestyle to maintain. Chronic pain syndrome 12/09/2023 Assessment & Plan (07/10/2024 11:[address] TESTER): Patient with chronic pain requires occasional hydrocodone. [...] provided Assessment & Plan (07/25/2022 2:[address] TESTER): Mammogram order provided Fatigue 12/23/2020 Assessment & Plan (12/09/2023 1:23 PM CDT): Probably multifactorial. Check labs and followup to re-evaluate Assessment & Plan (07/25/2022 2:[address] TESTER): Probably multifactorial. Check labs and followup to re-evaluate Assessment & Plan (02/07/2022 11:06 PM CDT): Probably multifactorial. Check labs and followup to re-evaluate Assessment & Plan (06/26/2021 9:[address] TESTER): Probably multifactorial. Check labs and followup to [...] chart Assessment & Plan (07/25/2022 2:[address] TESTER): Encouraged healthy lifestyle, good nutrition and exercise. Encouraged Calcium and Vitamin D and weight bearing exercise for bone health. Reviewed immunizations. Reviewed age appropirate screenings. Medicare Wellness Documentation is completed within the chart Assessment & Plan (06/26/2021 9:[address] TESTER): Encouraged healthy lifestyle, good nutrition and exercise. Encouraged Calcium and Vitamin D and weight bearing exercise for bone health. Reviewed immunizations. Reviewed age appropirate screenings. Medicare Wellness Documentation is completed within the chart Assessment & Plan (06/24/2020 10:[address] TESTER): Encouraged healthy lifestyle, good nutrition and exercise. Encouraged Calcium and Vitamin D and weight bearing exercise for bone health. Reviewed immunizations. Reviewed age appropirate screenings. Medicare Wellness Documentation is completed within the chart Muscle twitching 05/22/2019 Assessment & Plan (05/22/2019 3:[address] TESTER): This is a significant, separately identifiable problem that was evaluated and managed on the same day as the wellness exam Check labs to determine if electrolyte abnormality. Denies s/s sleep apnea Dermatitis 11/11/2018 Assessment & Plan (05/22/2019 3:[address] TESTER): Continue steroid cream prn Assessment & Plan [...] 10/24/2018 Assessment & Plan (07/25/2022 1:[address] TESTER): Refuses colon cancer screening. Reviewed importance of early detection for better outcome. Assessment & Plan (06/26/2021 8:[address] TESTER): Reviewed importance of screening. Pt voiced understanding. Assessment & Plan (06/24/2020 10:[address] TESTER): Reviewed importance of screening. Pt voiced understanding. Assessment & Plan (11/16/2019 2:39 PM CDT): Reviewed importance of screening. Pt voiced understanding. Assessment & Plan (05/22/2019 3:[address] TESTER): Reviewed importance of screening. Pt voiced understanding. Essential hypertension 10/24/2018 Assessment & Plan (07/10/2024 11:[address] TESTER): Bp is stable/in acceptable range for any co-morbidities. Encouraged to limit sodium intake and exercise for weight control. Continue Norvasc 5 and lisinopril 20 Assessment & Plan (06/19/2024 8:[address] TESTER): Bp is stable/in acceptable range for any [...] 5 Assessment & Plan (07/25/2022 1:[address] TESTER): Bp is stable/in acceptable range for any co-morbidities. Encouraged to limit sodium intake and exercise for weight control. Continue lisinopril and amlodipine Assessment & Plan (02/07/2022 11:06 PM CDT): Bp is stable/in acceptable range for any co-morbidities. Encouraged to limit sodium intake and exercise for weight control. Continue lisinopril and amlodipine Assessment & Plan (06/26/2021 8:[address]): Bp is stable/in acceptable range for any co-morbidities. Encouraged to limit sodium intake and exercise for weight control. Continue lisinopril and amlodipine Assessment & Plan (12/23/2020 10:08 AM CDT): Bp is stable/in acceptable range for any co-morbidities. Encouraged to limit sodium intake and exercise for weight control. Continue Amlodipine and lisinopril Assessment & Plan (06/24/2020 10:[address] TESTER): Bp is stable/in acceptable range for any co-morbidities. Encouraged to limit sodium intake and exercise for weight control. Continue lisinopril Assessment & Plan (11/16/2019 2:38 PM CDT): Bp is stable/in acceptable range for any co-morbidities. Encouraged to limit sodium intake and exercise for weight control. Stable with norvasc and lisinopril Assessment & Plan (05/22/2019 3:[address]): Bp is stable/in acceptable range for any co-morbidities. Encouraged to limit sodium intake and exercise for weight control. Continue amlodipine and lisinopril Hx of AKA (above knee amputation), left 10/25/19 Assessment & Plan (06/19/2024 8:[address] TESTER): History of AKA secondary to the lopez. Has a prosthetic and does great with ambulation Assessment & Plan (12/09/2023 1:22 PM CDT): History left gurib-bwl-fswq amputation. Doing well with her prosthesis. Continues to use hydrocodone sparingly p.r.n. for breakthrough pain from the prosthesis as well as R Axel Assessment & Plan (02/01/2023 9:34 PM CDT): Patient with history of aukho-idn-lmza amputation. Her prosthetic is no longer fitting comfortable and is affecting her gait to the point where she has to hold onto things to be able to ambulate in almost top around. Needs to return to [facility] to be refittd for Prosthetics so she is able to complete her ADLs independently. Assessment & Plan (07/25/2022 1:[address] TESTER): History above the knee amputation. Has prosthetic device. It is not fitting as well and is working with [facility] for replacement. Will await recommendations as she would benefit from a new device to avoid breakdown and infection of the stump Assessment & Plan (06/26/2021 8:[address]): Uses prosthesis Assessment & Plan (06/24/2020 10:[address] TESTER): No change Assessment & Plan (11/16/2019 2:40 PM CDT): Needs new prosthesis. She will contact [facility] and let me know what else needs done. Uses prn hydrocodone based on her activity due to the AKA and prosthesis. Will send refill. #60 will usually last up to 6 months. Assessment & Plan (05/22/2019 3:[address] TESTER): Continue with the prosthesis. History of lopez 10/24/2018 Assessment & Plan (06/19/2024 8:[address]STER): History of extensive lopez with scarring. On hydrocodone p.r.n. for pain related to these lopez skin changes Assessment & Plan (06/26/2021 9:[address] TESTER): No change Assessment & Plan (06/24/2020 10:[address] TE[address]): No change Assessment & Plan (05/22/2019 3:[address] TESTER): Chronic pain -- Continue to use the least effective amount of the narcotic. Reviewed the addictive and dependency characteristics of narcotics. Refill hydrocodone. Mixed hyperlipidemia 10/24/2018 Assessment & Plan (07/10/2024 11:[address] TESTER): Encouraged patient to follow low fat/low chol diet like the Mediterranean diet. Increase good fats in the diet. Increase exercise. Monitor labs as needed. Continue Crestor 10 Assessment & Plan (06/19/2024 8:[address] TESTER): Encouraged patient to follow low fat/low chol [...] 10 Assessment & Plan (07/25/2022 1:[address] TE[address]): Encouraged patient to follow low fat/low chol [...] 10 Assessment & Plan (06/26/2021 9:[address] TESTER): Encouraged patient to follow fat/low chol diet like the Mediterranean diet. Increase good fats in the diet. Increase exercise. Monitor labs as needed. Continue statin Assessment & Plan (12/23/2020 10:08 AM CDT): Encouraged patient to follow fat/low chol diet like the Mediterranean diet. Increase good fats in the diet. Increase exercise. Monitor labs as needed. Continue crestor Assessment & Plan (06/24/2020 10:[address] TESTER): Encouraged patient to follow fat/low chol diet like the Mediterranean diet. Increase good fats in the diet. Increase exercise. Monitor labs as needed. Diet control Assessment & Plan (11/16/2019 2:41 PM CDT): Encouraged patient to continue low fat/low chol diet. Continue exercise. Increase good fats in the diet. Monitor labs as needed. Assessment & Plan (05/22/2019 3:[address] TESTER): Encouraged patient to continue low fat/low chol [...] diabetes. Assessment & Plan (07/25/2022 2:[address] TESTER): Pre-diabetes/hyperglycemia is a precursor to Dm. Stressed [...] diabetes. Assessment & Plan (06/26/2021 9:[address]): Pre-diabetes/hyperglycemia is a precursor to Dm. Stressed [...] diabetes. Assessment & Plan (06/24/2020 10:[address]STER): Pre-diabetes is a precursor to Dm. Stressed [...] diabetes. Assessment & Plan (05/22/2019 3:[address] TESTER): This is a significant, separately identifiable problem [...] 10/24/2018 Assessment & Plan (07/10/2024 11:[address] TESTER): Encouraged smoking cessation. Discussed 3 minutes. Reviewed options for assistance with cessation. Reviewed bed bug exterminator sequela associated with smoking. Pt declines assistance at this time but may contact the office at anytime for further help as they desire. Assessment & Plan (06/19/2024 8:[address] TESTER): Encouraged smoking cessation. Discussed 3 minutes. Reviewed options for assistance with cessation. Reviewed bed bug exterminator sequela associated with smoking. Pt declines assistance at this time but may contact the office at anytime for further help as they desire. Assessment & Plan (02/01/2023 9:33 PM CDT): Encouraged smoking cessation. Discussed 3 minutes. Reviewed options for assistance with cessation. Reviewed bed bug exterminator sequela associated with smoking. Pt declines assistance at this time but may contact the office at anytime for further help as they desire. Assessment & Plan (07/25/2022 2:[address] TESTER): Encouraged smoking cessation. Discussed 3 minutes. Reviewed options for assistance with cessation. Reviewed bed bug exterminator sequela associated with smoking. Pt declines assistance at this time but may contact the office at anytime for further help as they desire. Discussed low-dose CT. Will consider Assessment & Plan (02/07/2022 11:07 PM CDT): Encouraged smoking cessation. Discussed 3 minutes. Reviewed options for assistance with cessation. Reviewed bed bug exterminator sequela associated with smoking. Pt declines assistance at this time but may contact the office at anytime for further help as they desire. Assessment & Plan (06/26/2021 9:[address]): Encouraged smoking cessation. Discussed 3 minutes. Reviewed options for assistance with cessation. Reviewed bed bug exterminator sequela associated with smoking. Pt declines assistance at this time but may contact the office at anytime for further help as they desire. Assessment & Plan (06/24/2020 10:[address]): Encouraged smoking cessation. Discussed 3 minutes. Reviewed options for assistance with cessation. Reviewed bed bug exterminator sequela associated with smoking. Pt declines assistance at this time but may contact the office at anytime for further help as they desire. Assessment & Plan (11/16/2019 2:39 PM CDT): Encouraged smoking cessation. Discussed 3 minutes. Reviewed options for assistance with cessation. Reviewed bed bug exterminator sequela associated with smoking. Pt declines assistance at this time but may contact the office at anytime for further help as they desire. Assessment & Plan (05/22/2019 3:[address]): Encouraged smoking cessation. Discussed 3 minutes. Reviewed options for assistance with cessation. Reviewed chcf sequela associated with smoking. Pt declines assistance at this time but may contact the office at anytime for further help as they desire. Marijuana abuse, continuous 11/07/2015 Overview (07/21/2022): ongoing Other abnormal glucose 11/07/2015 Overview (07/21/2022): stable Resolved Problems Problem Noted Date Diagnosed Date Resolved Date Skin tag 06/18/2023 12/09/2023 Assessment & Plan (06/18/2023 9:47 [address] TESTER): Pathology confirmed benign skin tags. No further treatment is needed. Skin lesions 06/10/2023 12/09/2023 Assessment & Plan (06/10/2023 3:[address] TESTER): Reviewed procedure with patient including process, possible [...] provided. Assessment & Plan (06/10/2023 3:54 PM [address] TESTER): Discussed the patient's BMI. The BMI is [...] provided. Assessment & Plan (06/10/2023 3:[address] TESTER): Discussed the patient's BMI. The BMI is [...] 06/26/2021 Assessment & Plan (06/26/2021 9:[address] TESTER): Reviewed importance of screening. Pt voiced understanding. BMI 29.0-29.9,adult 06/24/2021 01/21/20 23 Assessment & Plan (07/25/2022 2:[address] TESTER): Weight/BMI is in healthy range. Continue healthy lifestyle to maintain. Assessment & Plan (02/07/2022 11:06 PM CDT): Weight/BMI is in healthy range. Continue healthy lifestyle to maintain. Assessment & Plan (06/24/2021 1:[address] TESTER): Weight/BMI is in healthy range. Continue healthy lifestyle to maintain. BMI 29.0-29.9,adult 12/17/2020 12/18/19 21 Assessment & Plan (12/17/2020 1:33 PM CDT): Weight/BMI is in healthy range. Continue healthy lifestyle to maintain. BMI 29.0-29.9,adult 11/16/2019 12/18/19 21 Assessment & Plan (06/18/2020 1:[address]): Weight/BMI is in healthy range. Continue healthy lifestyle to maintain. Assessment & Plan (11/16/2019 1:58 PM CDT): BMI Follow-up includes: Discussed diet and exercising counseling. Breast cancer screening by mammogram 05/22/2019 12/16/2021 Assessment & Plan (06/24/2020 10:[address] TE[address]): Mammogram order provided Assessment & Plan (11/16/2019 2:39 PM CDT): Mammogram order provided Assessment & Plan (05/22/2019 3:[address] TESTER): Mammogram order provided BMI 28.0-28.9,adult 05/16/2019 11/16/19 20 Assessment & Plan (05/16/2019 2:[address] TESTER): Weight/BMI is in healthy range. Continue healthy lifestyle to maintain. Medicare annual wellness visit, subsequent 05/16/2019 11/16/2019 Assessment & Plan (05/22/2019 3:[address] TESTER): Encouraged healthy lifestyle, good nutrition and exercise. [...] 12/09/2023 Assessment & Plan (06/24/2020 10:[address] TESTER): noted Acquired absence of left leg above knee 11/07/2015 07/25/2022 Overview (07/21/2022): stable Essential hypertension 11/07/201507/25 Overview (07/21/2022): controlled Hyperlipidemia 11/07/2015 07/25/2022 Overview (07/21/2022): rx declined Tobacco abuse 11/07/2015 07/25/2022 Overview (07/21/2022): ongoing Immunizations Immunization Administration Dates Next Due Influenza, Unspecified 05/25/2023(Deferr ed: Patient Refused),05/25/2023(Deferred: Patient Refused),07/21/2022(Deferred: Patient Refused),06/24/2021(Deferred: Patient Refused),02/23/2020(Deferred: Patient Refused),02/22/2018(Deferred: Patient Refused) Pfizer SARS-CoV-2 Monovalent Vaccination (12+ Yrs) PURPLE 12/17/2020,12/16/2020,11/28/2020 Pfizer Sars-Cov-2 Bivalent Vaccination (6 MOS-4 YRS) 07/21/2022(Deferred: Patient Refused) Tdap 02/24/2015 Social History Tobacco Use Types Packs/Day Years [...] Comments Blood Pressure 122/80 06/23/2024 9:[address] Pulse 113 06/23/2024 9:[address] Temperature 36.7 C (98.1 F) 06/10/2024 9:[address] Respiratory Rate 16 01/20/2023 1:30 PM CDT Oxygen Saturation 95% 06/23/2024 9:[address] O2 @3L/NC Inhaled Oxygen Concentration - - Weight 72.8 kg (160 lb 8 oz) 06/23/2024 9:[address] Height 156.8 cm (5' 1.75 ) 12/09/2023 9:05 AM CD T Body Mass Index 29.59 12/09/2023 9:05 AM CDT Plan of Treatment Not on file Procedures Procedure Name Priority Date/Time Associated Diagnosis Comments CARDIOLOGY DOCUMENT SCAN 06/13/2024 ECG 12-LEAD Routine 06/10/2024 SOB (shortness of breath) Tachycardia SCREENING MAMMOGRAM BILATERAL W PHILIP Schedule Routine, Read Routine (OP Routine) 01/19/2024 10:54 AM CDT Breast cancer screening by mammogram from Last 3 Months or Most Recently Relevant to Health Maintenance Results * Cardiology Document Scan (06/13/2024) Anatomical Region Laterality Modality Other Provider Scanning CV CARDIAC SERVICES PROCEDURES Final Result * ECG 12 lead (06/10/2024) 06/10/2024 Narrative Rae Patel PA - 06/10/2024 10:[address] Dx: hypoxia/tachycardia 106 bpm Normal Sinus rhythm. NO comparison available. Rae MUSA ECG ORDERABLES Edited Res ult - Final * Screening Mammogram Bilateral W Philip (01/19/2024 10:54 AM CDT) Anatomical Region Laterality Modality Breast Bilateral Mammography Rae MUSA IMG MAMMO PROCEDURES Final Result from Last 3 Months or Most Recently Relevant to Health Maintenance Insurance MEDICARE MEDICARE Advance Directives For more information, please contact: [phone] Documents on File Type Date Recorded Patient Multimedia Programmer Expl anation ADVANCE DIRECTIVE 05/16/2019 Care Teams B Operator Relationship Specialty Start Date End Date Rae Patel PA [address] [facility] [address] [place] [phone] PCP - General Internal Medicine 10/13/18
--- OUTSIDE RECORDS SUMMARY | 2024-08-12 08:48 | XMS_ITS | Encounter Summary ---
Author Organization [facility] Address [address] [place] [address] Care Team Providers Care Director Of Learning Name Role Phone Rae Patel PA-C Primary Care Provider [phone] [phone] Encounter Details Date Type Department Care Team (Latest Contact Info) Description 08/11/2000 Outpatient Historical [facility] Erwin Ledesma MD [address] [place] [phone] Follow-up examination, following other surgery (Primary Dx) Social History Tobacco Use Types Packs/Day Years Used Date Smoking Tobacco: Never Assessed Comments Unknown Sex and Gender Information Value Date Recorded Sex Assigned at Not on file Legal 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
--- OUTSIDE RECORDS SUMMARY | 2024-08-12 08:48 | XMS_ITS | Encounter Summary ---
Author Organization [facility] Healthcare Address [address] [place] [address] Care Team Providers Care Paster Operator Name Role Phone Rae Patel Primary Care Provider [phone] Reason for Visit * Reason Onset Date Comments Additional Services Or Orders 07/11/2024 Encounter Details Date Type Department Care Team (Late st Contact Info) Description 07/11/2024 Telephone [facility] Family Medicine [address] [place] [address] Rae Patel PA [address] [place] [address] [place] [id number] Additional Services Or Orders Social History Tobacco Use Types Packs/Day Years [...] on file documented as of this encounter Miscellaneous Notes * Telephone Encounter - aRe Patel PA - 07/14/2024 9:27 AM DISPOSAL MAN Noted. Will send all respiratory needs/oxygen needs to Dr. Bauer at [facility] OSAL MAN * Telephone Encounter - Bhumi Fajardo LPN - 07/14/2024 9:17 AM DISPOSAL MAN FYI--Called and spoke with Allyson at [facility] to find out exactly what is needed as the stated that he was told it would be picked up by 07/15/24. Allyson clarified that the O2 is covered by Medicare for 90 days from the set up date of 06/14/24. The diagnosis that was given from the hospital is Acute respiratory failure with hypoxia and hypercapnia secondary to COPD Exacerbation. This isconsidered an acute dx and they need a new RX with dx of COPD and updated notes around 60-90 days post discharge stated that pt still requires oxygen. Allyson gave her direct phone number of [phone] and fax [phone]. Called and spoke to Soha Hoffman and her to clarify that the oxygen will not be taken and attempted to explain what was needed but they stopped this nurse and stated patient has an appt with Dr. Bauer, carding machine feeder at [facility] today and they will have him address the O2 needs and set everything up. Offered to give pt all the information that was received on what was required and stated It's fine, the company has dealt with Dr. Bauer, they know what they are doing. OSAL MAN * Telephone Encounter - Bhumi Fajardo LPN - 07/11/2024 4:18 PM DISPOSAL MAN Called [facility] to find out exactly what is needed. Spoke with food service sales representatives and they statedthey need to speak to someone else to clarify as their notes state Make appt and call after 2 weeks with update. When asked make an appt with whom food service sales representatives stated she was not sure. When askedwhat kind of update was needed, was it an updated order or updated office notes, food service sales representatives stated she did not know. Business Technology Teacher stated she will clarify and call back. Please transfer through to office. OSAL MAN * Telephone Encounter - Rae Patel PA - 07/11/2024 4:03 PM DISPOSAL MAN Patient is suppose to be seeing Dr. Bauer, Pulmonary at [facility]. She was due to be seen between now and 2 weeks (4-6 weeks after discharge) --- Does she have an appointment. He will be managing her NIV and O2. I will approve oxygen until se sees Dr. Bauer as I don't want her to go without but she MUST see pulmonary as I don't manage NIV with O2. OSAL MAN * Telephone Encounter - Hanh Sharpe - 07/11/2024 3:18 PM CST Additional Services or Orders Type of Service Requested:Equipment Reason for Request (e.g. condition/symptom, date of COVID exposure if applicable): copd Details Regarding Additional Services (e.g. type of home health, type of equipment, type of test, etc.): oxygen tank Where will services be performed? (if outside of the practice, facility name, address, phone/fax offacility): [facility] - Additional Comments: States they were advised that if they didn't receive a new order for the oxygen by 07/15 , that it would be picked up and they'd have to restart the process. Would like to avoid coming in due to the prediction of the weather. Sending as urgent request. Please let the patient know once it's been taken care of or if patient needs to be seen. Does message need to be routed? Yes-Action Needed OSAL MAN documented in this encounter Plan of Treatment Not on file documented as of this encounter Visit Diagnoses Not on filedocumented in this encounter Care Teams Paster Operator Relationship Specialty Start Date End Date Rae Patel PA [address] [address] PCP - General Internal Medicine 10/13/18 documented as of this encounter
--- OUTSIDE RECORDS SUMMARY | 2024-08-12 08:48 | XMS_ITS | Encounter Summary ---
Author Organization [facility] Address 

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
--- NOTE | 2024-08-12 14:21 | WPDPFTINT ---
PFT Procedure Performed PFT Procedure Performed Spirometry with Pre/Post Bronchodilator Plethysmography (Lung Vol) Diffusing Cap (DLCO) Flow Vol Loop PFT Interpretation Lung volumes were assessed using the body plethysmography method. The elevated Functional Residual Capacity (FRC) and Residual Volume (RV) suggest air trapping, while the increased Total Lung Capacity (TLC) may indicate lung hyperinflation. Spirometry results revealed reduced expiratory flow rates and a Forced Expiratory Volume in one second to Forced Vital Capacity (FEV1/FVC) ratio of 30%, which is consistent with severe obstructive airway disease. After bronchodilator administration, there was a significant increase in the forced vital capacity. Lung diffusion capacity is markedly reduced at 48% of the predicted value. This reduced diffusion capacity, along with a low alveolar volume and a low DLCO/VA ratio, indicates a loss of alveolar capillary structure, as seen in conditions like emphysema or interstitial lung disease. The flow-volume loop is consistent with severe emphysema. Impression: Very severe obstructive airway disease with evidence of air trapping, lung hyperinflation, and a significant response to bronchodilators on this testing. Severely reduced lung diffusion capacity.
== END 2024-08-12 08:23 | disposition home or self-care (01) ==
PROVIDERS: PCP Physician Assistant; Visit Provider Internal Medicine Pulmonary Disease
DX: J44.9 Chronic obstructive pulmonary disease, unspecified (principal)
CPT/HCPCS: 94060; 94726; 94729

== ENCOUNTER → 2025-04-17 11:04 | Outpatient (CLI) | payer MEDICARE, SELFPAY ==
--- NOTE | ~2025-04-17 | XR_ITS ---
PROCEDURE/PROCEDURES: XR hip RT min 2V HISTORY: Right hip/groin pain. Status post right hip replacement COMPARISON(S): None. TECHNIQUE: 2 radiographic images were submitted for interpretation. FINDINGS: Bones: There are no fractures seen. The orthopedic hardware is noted, grossly there is no abnormality seen. There are no destructive lesions or other lesions identified. Joints: There are no dislocations identified. IMPRESSION: No acute abnormalities are seen. Postop change Reviewed, dictated and finalized at location B. ESSOR OF ART HISTORY
== END ==
LOC: EXPCRAD 11:05
PROVIDERS: PCP Physician Assistant; Visit Provider Physician Assistant
DX: M25.551 Pain in right hip (principal)
CPT/HCPCS: 73502